=== PATIENT | male | born 1970 | race Caucasian/White ===

== ENCOUNTER 2019-07-31 14:53 | Inpatient (IN) ==
[2019-07-31] MEDS ORDERED: cefTRIAXone SODIUM 1,000 MG/50 ML BAG IV STA (15:12)
[2019-07-31] MEDS ORDERED: ONDANSETRON INJ 2 MG/ML 2 ML VIAL IV STA (15:12)
[2019-07-31] MEDS ORDERED: MoRPHine SULFATE 10 MG/ML CARP/VIAL IV STA (15:12)
[2019-07-31] MEDS ORDERED: SODIUM CHLORIDE 0.9% 1000ML 2,000 ML IV ONE (15:12)
--- NOTE | 2019-07-31 15:12 | Emergency Department Note ---
Impression & Plan Sepsis, Acute UTI, Asplenia ED Provider Note NAME: INNA WILLARD AGE: 49 SEX: M : 1970 ARRIVES VIA: Walk-In INFORMANT: Patient ED PROVIDER(S): Josh Adams DO CHIEF COMPLAINT: Lower back pain HPI: Patient is a 49-year-old male with a past medical history of renal stones, hypertension, hyperlipidemia and CAD the presents the ER for severe back pain and pain at the tip of his penis. He notes that he has been having dysuria urgency and frequency. His symptoms started this past Wednesday at 4 AM. He notes it feels like his previous kidney stones but worse. He also notes that for the past 3 weeks up until this past he has had a cough and postnasal drip. He denies any cough currently shortness of breath. He does admit to a fever which is been present for the past 24 to 48 hours. Patient admits to nausea but no vomiting. No other exacerbating or remitting factors. He has been taking Tylenol with no improvement. No weakness or numbness in his arms or legs. ROS: See above HPI for pertinent positives & negatives. A total of 10 systems reviewed and were otherwise negative. PAST MEDICAL HISTORY:See Below PAST SURGICAL HISTORY:See Below FAMILY HISTORY:See Below SOCIAL HISTORY:See Below HOME MEDICATIONS:See Below ALLERGIES:See Below VITALS:See Below PHYSICAL EXAMINATION: GENERAL: Sitting up in bed, moderate distress holding his penis, EYE EXAM: normal conjunctiva OROPHARYNX: no exudate, no erythema, lips, buccal mucosa, and tongue normal and mucous membranes are moist NECK: supple, no nuchal rigidity, no adenopathy, non-tender LUNGS: Clear to auscultation. Normal chest wall mechanics HEART: Tachycardic S1 normal and S2 normal ABDOMEN: abdomen soft, non-tender, normo-active bowel sounds, no masses, no rebound or guarding. BACK: Back is symmetrical on inspection and there is no deformity, no midline tenderness, no CVA tenderness. : Normal external circumcised genitalia. Testicles are nontender. No masses. No discharge. SKIN: no rashes and no bruising UPPER EXTREMITIES: upper extremities are grossly normal. LOWER EXTREMITIES: No pitting edema. NEURO EXAM: Normal sensorium, cranial nerves II-XII grossly intact, normal speech, no gross weakness of arms, no gross weakness of legs. MEDICAL DECISION MAKING: Patient is a 49-year-old male with past medical history of renal colic, asplenic who presents the ER for fevers back pain dysuria urgency and frequency. He had respiratory symptoms for the past 3 weeks which resolved this past . Urinary symptoms and fever, as well as back pain started Wednesday. He has a leukocytosis of 21,000. No significant anemia. BMP with mild hypokalemia. LFTs bilirubin troponin was negative. Lipase was normal. UA shows an infection with white cells, leukocytes and bacteria. Patient was given IV fluids, IV Rocephin and IV narcotics. Patient was updated bedside and discussed with hospitalist for admission. X-ray with a questionable left lower lobe infiltrate. He is completely asymptomatic. CT abdomen pelvis shows inflamm ation of the bladder. Triage Nursing notes reviewed. Prior medical records reviewed Vital Signs: reviewed and remarkable for no significant abnormalities Differential diagnosis: Differential diagnosis includes etiologies such as sepsis, UTI, pneumonia, metabolic, electrolyte abnormalities, cardiac sources, intracerebral event, toxicologic, neurological, as well as others were entertained. ER treatment provided: See below Diagnostics interpreted by me: Cardiac Monitoring:Sinus rhythm rate of 90 normal Laboratory studies: As stated above and show below. Imaging studies: Portable AP upright 1 view of the chest showed a questionable left lower lobe infiltrate. 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 Beliefs That Will Affect Care: None Current Living Situation: Spouse Feels Safe at Home: Yes Smoking Status: Never smoker Second Hand Exposure: No ; Hx Alcohol Use: Yes Alcohol type: beer Hx Substance Use: No Allergies Allergies Allergy/AdvReac Type Severity Reaction Status Date / Time No Known Allergies Allergy Verified 07/31/19 15:50 Home Meds Home Medications Medication Instructions Recorded Confirmed atorvastatin 20 mg tablet 20 mg PO QAM #30 tab 12/06/18 07/31/19 lorazepam 1 mg tablet 1 mg PO DAILY PRN tab 12/06/18 07/31/19 metoprolol succinate 50 mg 50 mg PO QAM #30 tab 12/06/18 07/31/19 tablet,extended release 24 hr venlafaxine 150 mg 150 mg PO QAM cap 12/06/18 07/31/19 capsule,extended release 24 hr aspirin 325 mg PO QAM 07/31/19 07/31/19 losartan 100 mg PO QAM 07/31/19 07/31/19 Results & Data (ED) Vital Signs Vital Signs - 24 hr 07/31/19 14:56 07/31/19 15:48 07/31/19 15:51 Temperature 38.0 C H Temperature Source Oral Pulse Rate 112 H Pulse Rate [Left] 107 H Pulse Rhythm Regular Pulse Rhythm [Left] Regular Pulse Strength Normal Respiratory Rate 20 20 Respiratory Effort / Characteristics Non-Labored Respiratory Depth Normal Normal Respiratory Pattern Regular Regular Blood Pressure [Left Arm] 130/84 Blood Pressure Mean [Left Arm] 99 Blood Pressure Position Sitting Pulse Oximetry 97 95 94 Oxygen Delivery Method Room Air Room Air Room Air Sepsis Recent Fever Within 48 Hours Yes Sepsis Action Taken by Nursing No Action Required 07/31/19 16:50 Temperature Temperature Source Pulse Rate Pulse Rate [Left] 101 H Pulse Rhythm Pulse Rhythm [Left] Regular Pulse Strength Respiratory Rate 25 H Respiratory Effort / Characteristics Non-Labored Respiratory Depth Normal Respiratory Pattern Regular Blood Pressure [Left Arm] 151/96 H Blood Pressure Mean [Left Arm] 114 Blood Pressure Position Pulse Oximetry 95 Oxygen Delivery Method Room Air Sepsis Recent Fever Within 48 Hours Sepsis Action Taken by Nursing Laboratory Data Result diagrams: 07/31/19 15:30 07/31/19 15:30 Lab Results 07/31/19 07/31/19 07/31/19 Range/Units 15:27 15:30 15:30 WBC 21.45 H (4.8-10.8) K/uL RBC 4.83 (4.7-6.1) M/uL Hgb 14.9 (14.0-18.0) g/dL Hct 43.5 (42-52) % MCV 90.1 (80-100) fL MCH 30.8 (25-34) pg MCHC 34.3 (32-36) g/dL RDW Std Deviation 45.4 (36.4-46.3) fL RDW Coeff of Ashley 13.8 (11.5-14.5) % Plt Count 291 (130-400) K/uL MPV 9.9 (7.4-10.4) fL Immature Gran % (Auto) 0.2 % Neut % (Auto) 85.1 % Lymph % (Auto) 6.1 % [place] % (Auto) 8.3 % Eos % (Auto) 0.2 % Baso % (Auto) 0.1 % Immature Gran # (Auto) 0.05 H (0.00-0.02) K/uL Neut # (Auto) 18.23 H (1.4-6.5) K/uL Lymph # (Auto) 1.31 (1.2-3.4) K/uL [place] # (Auto) 1.79 H (0.11-0.59) K/uL Eos # (Auto) 0.04 (0-0.5) K/uL Baso # (Auto) 0.03 (0-0.2) K/uL Sodium 134 L (136-145) mmol/L Potassium 3.8 (3.5-5.1) mmol/L Chloride 102 (98-107) mmol/L Carbon Dioxide 26 (21-32) mmol/L Anion Gap 6.0 (3-11) BUN 12 (7-18) mg/dl Creatinine 1.10 (0.6-1.4) mg/dl Est Cr Clr Drug Dosing Not Reportable Est GFR ( Amer) 89.6 Est GFR (Non-Af Amer) 77.3 BUN/Creatinine Ratio 11.2 (10-20) Glucose 108 H (70-99) mg/dl Calcium 9.3 (8.5-10.1) mg/dl Total Bilirubin 0.6 (0.2-1) mg/dl AST 19 (15-37) U/L ALT 32 (12-78) U/L Alkaline Phosphatase 103 (45-117) U/L Troponin I < 0.015 (0-0.045) ng/ml Total Protein 8.3 H (6.4-8.2) gm/dl Albumin 3.7 (3.4-5.0) gm/dl Globulin 4.6 H (2.5-4.0) gm/dl Albumin/Globulin Ratio 0.8 L (0.9-2) Lipase 109 (73-393) U/L Urine Color Yellow Urine Appearance Cloudy A (Clear) Urine pH 7.5 (4.5-7.5) Ur Specific [place] 1.026 (1.000-1.030) Urine Protein 2+ H (Negative) Urine Glucose (UA) 1+ H (Negative) Urine Ketones Trace H (Negative) Urine Blood Trace H (Negative) Urine Nitrite Positive A (Negative) Urine Bilirubin Negative (Negative) Urine Urobilinogen Negative (Negative) Ur Leukocyte Esterase 2+ H (Negative) Urine WBC (Auto) >30 H (0-5) /hpf Urine RBC (Auto) 0-4 (0-4) /hpf U Hyaline Cast (Auto) 10-30 H (0-5) /lpf U Epithel Cells (Auto) 5-10 H (0-5) /lpf Urine Bacteria (Auto) 4+ H (Negative) Administered Medications Discontinued Medications Sodium Chloride (Nss 1000ml) 2,000 mls @ 999 mls/hr IV .Q2H1M ONE Stop: 07/31/19 17:12 Last Infusion: 07/31/19 17:23 Dose: 0 mls/hr Documented by: [id number] Admin: 07/31/19 15:41 Dose: 999 mls/hr Documented by: [id number] Ceftriaxone Sodium (Rocephin) 1,000 mg in 50 mls @ 100 mls/hr IV NOW STA Stop: 07/31/19 15:41 Last Infusion: 07/31/19 17:23 Dose: 0 mls/hr Documented by: [id number] Admin: 07/31/19 16:49 Dose: 100 mls/hr Documented by: [id number] Morphine Sulfate (Morphine Sulfate) 6 mg IV NOW STA Stop: 07/31/19 15:13 Last Admin: 07/31/19 15:39 Dose: 6 mg Documented by: [id number] Ondansetron HCl (Zofran) 4 mg IV NOW STA Stop: 07/31/19 15:13 Last Admin: 07/31/19 15:39 Dose: 4 mg Documented by: [id number] Discharge Plan Visit Data Chief Complaint: Flank Pain Stated Complaint: flank pain, lower back pain, possible kidney stone ED Provider: Josh Adams Discharge Problem: Sepsis, Acute UTI, Asplenia Discharge Instructions Interventions: ED Discharge Assessment Last Done: 07/31/19 17:25 Discharge Problem: Sepsis Qualifiers: Sepsis type: sepsis due to unspecified organism Sepsis acute organ dysfunction status: unspecified Qualified Code(s): A41.9 - Sepsis, unspecified organism
[2019-07-31 15:39] LABS: Appearance Urine Cloudy (Clear); Bacteria Urine Automated 4+ (Negative); Bilirubin Urine Negative (Negative); Blood Urine Trace (Negative); Color Urine Yellow; Glucose Urine UA 1+ (Negative); Ketones Urine Trace (Negative); Leukocyte Esterase Urine 2+ (Negative); Nitrite Urine Positive (Negative); RBC Urine Automated 0-4 /hpf (0-4); Specific Gravity Urine 1.026 (1.000-1.030); Urobilinogen Urine Negative (Negative); WBC Urine Automated >30 /hpf (0-5); pH Urine 7.5 (4.5-7.5)
[2019-07-31 15:40] LABS: Protein Urine 2+ (Negative)
[2019-07-31 15:42] LABS: Sulfosalicylic Acid Urine Positive (Negative)
--- NOTE | 2019-07-31 15:56 | XRay Report ---
XR chest 1V portable CLINICAL HISTORY: fever dyspnea COMPARISON STUDY: No previous studies for comparison. FINDINGS: Minimal interstitial change left mid and lower lung. Lungs otherwise appear clear. Slight f ullness mid mediastinum which may be rotational. Diaphragms are smooth. IMPRESSION: Minimal interstitial change left mid to lower lung. ACT 112: Negative or not required by law. The above report was generated using voice recognition software. It may contain grammatical, syntax or spelling errors. Electronically signed by: Erick Whitfield M.D. 07/31/2019 3:55 PM
[2019-07-31 15:58] LABS: Basophils # (auto) 0.03 K/uL (0-0.2); Basophils % (auto) 0.1 %; Eosinophils # (auto) 0.04 K/uL (0-0.5); Eosinophils % (auto) 0.2 %; Hematocrit (blood only) 43.5 % (42-52); Hemoglobin 14.9 g/dL (14.0-18.0); Immature Granulocytes # (auto) 0.05 K/uL (0.00-0.02); Immature Granulocytes % (auto) 0.2 %; Lymphocytes # (auto) 1.31 K/uL (1.2-3.4); Lymphocytes % (auto) 6.1 %; Mean Corpuscular Hemoglobin 30.8 pg (25-34); Mean Corpuscular Hgb Conc 34.3 g/dL (32-36); Mean Corpuscular Volume 90.1 fL (80-100); Mean Platelet Volume 9.9 fL (7.4-10.4); Monocytes # (auto) 1.79 K/uL (0.11-0.59); Monocytes % (auto) 8.3 %; Neutrophils # (auto) 18.23 K/uL (1.4-6.5); Neutrophils % (auto) 85.1 %; Platelet Count 291 K/uL (130-400); RDW Coefficient of Variation 13.8 % (11.5-14.5); RDW Standard Deviation 45.4 fL (36.4-46.3); Red Blood Count 4.83 M/uL (4.7-6.1); White Blood Count 21.45 K/uL (4.8-10.8)
[2019-07-31 16:04] LABS: Alanine Aminotransferase 32 U/L (12-78); Albumin Level 3.7 gm/dl (3.4-5.0); Aspartate Aminotransferase 19 U/L (15-37); BUN Creatinine Ratio 11.2 (10-20); Blood Urea Nitrogen 12 mg/dl (7-18); Calcium 9.3 mg/dl (8.5-10.1); Carbon Dioxide 26 mmol/L (21-32); Chloride 102 mmol/L (98-107); Est GFR (African American) 89.6; Est GFR (Non-African American) 77.3; Glucose 108 mg/dl (70-99); Lipase 109 U/L (73-393); Potassium 3.8 mmol/L (3.5-5.1); Sodium 134 mmol/L (136-145)
[2019-07-31 16:09] LABS: Albumin Globulin Ratio 0.8 (0.9-2); Alkaline Phosphatase 103 U/L (45-117); Bilirubin,Total 0.6 mg/dl (0.2-1); Globulin 4.6 gm/dl (2.5-4.0); Total Protein 8.3 gm/dl (6.4-8.2); Troponin I < 0.015 ng/ml (0-0.045)
--- NOTE | 2019-07-31 16:24 | CT Scan Report ---
ABDOMEN AND PELVIS CT WITHOUT CONTRAST CT DOSE: 1087.78 mGycm HISTORY: flank pain TECHNIQUE: Multiaxial CT images of the abdomen and pelvis were performed without contrast. A dose lo wering technique was utilized adhering to the principles of ALARA. COMPARISON STUDY: Abdomen and pelvis CT 09/28/2013. FINDINGS: The lung bases are clear. No pneumoperitoneum. No pneumatosis. The unenhanced liver, gallbl adder, pancreas, adrenal glands, and left kidney are unremarkable. There is a 1.5 cm hypodense lesion within the right kidney. This is incompletely characterized on this noncontrast study but favors a c yst. No renal or ureteral stones. No hydronephrosis. There is an atrophic spleen. Multiple scattered nodules seen throughout the abdomen consistent with splenosis. This remains unchanged. Bladder wall i s thickened and there is adjacent fat stranding. Findings are consistent with a cystitis. No retroper itoneal lymphadenopathy. Small fat-containing bilateral inguinal hernias. Suboptimal evaluation for b owel pathology due to the lack of intravenous and oral contrast. However, there is no definite bowel wall thickening or obstruction. Colonic diverticulosis. No evidence for diverticulitis. Normal append ix. No suspicious lytic or blastic osseous lesions. IMPRESSION: 1. Bladder wall thickening with adjacent fat stranding consistent with a cystitis. Recommend correlat ion with urinalysis. 2. No renal or ureteral stones. No hydronephrosis. 3. Splenosis, unchanged. ACT 112: Negative or not required by law. Electronically signed by: Matthew Nguyen M.D. 07/31/2019 4:23 PM
[2019-07-31] MEDS ORDERED: ACETAMINOPHEN 325 MG TAB PO PRN (17:42)
[2019-07-31] MEDS ORDERED: PHENAZOPYRIDINE HCL 200 MG TAB PO STA (17:42)
[2019-07-31] MEDS ORDERED: MoRPHine SULFATE 4 MG/ML 1 ML CARP\\VIAL IV PRN (17:42)
[2019-07-31] MEDS ORDERED: ONDANSETRON INJ 2 MG/ML 2 ML VIAL IV PRN (17:42)
--- NOTE | 2019-07-31 17:52 | History & Physical Report ---
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 WBC: 21. BUN:12, Cr: 1.1, GFR: 77, UA: +nitrite, 2+ leuk esterase, >30 WBC, 4+bacteria, 5-[address] ABD/PELVIS: 1. Bladder wall thickening with adjacent fat stranding consistent with a cystitis. Recommend correlation with urinalysis. 2. No renal or ureteral stones. No hydronephrosis. 3. Splenosis, unchanged. CYSTITIS, SEPSIS. In Setting of Asplenia. DDX: Pyelonephritis, prostatitis. -In ER given 2L NSS, morphine, zofran, Rocephin 1GM IV -Lactate pending -Blood culture pending -Urine culture pending -Zosyn, vancomycin -IVF -ID consult -CBC, BMP in am (2) Hypertension: Stable Recently taken off amlodipine secondary to BLE. 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 Pt states 2 days ago started with fever up to 102F, chills, POLLOCK, low back pain, dysuria, penile burning, urinary urgency, some lower abdominal pressure, nausea. Pt states at first he thought he was passing a kidney stone but reports different back pain with prior kidney stones. Denies penile discharge, scrotal edema or erythema. Denies rectal pain. Is in monogamous relationship with female partner. Denies h/o STD's, penile or scrotal lesions or rashes. H/O cough 06/2019 and in mid 07/2019 that started with post nasal drip followed by cough and then hoarseness. Saw PCP and used albuterol and Breo and pt states cough resolved and no cough for 4-5 days. Had no associated fevers at that time. Pt was on amlodipine and developed BLE edema and stopped 3 days ago with resolution of edema. Denies vomiting, diarrhea, hematuria, dizziness, syncope, vision changes, neck pain, CP, SOB, orthopnea, palpitations, sore throat, choking, otalgia, paresthesias, weakness, extremity weakness, rashes. Allergies Allergy/AdvReac Type Severity Reaction Status Date / Time No Known Allergies Allergy Verified 07/31/19 15:50 Home Medications Home Medications Medication Instructions Recorded Confirmed Type atorvastatin 20 mg tablet 20 mg PO QAM #30 tab 12/06/18 07/31/19 History lorazepam 1 mg tablet 1 mg PO DAILY PRN tab 12/06/18 07/31/19 History metoprolol succinate 50 mg 50 mg PO QAM #30 tab 12/06/18 07/31/19 History tablet,extended release 24 hr venlafaxine 150 mg 150 mg PO QAM cap 12/06/18 07/31/19 History capsule,extended release 24 hr aspirin 325 mg PO QAM 07/31/19 07/31/19 History hydrochlorothiazide 12.5 mg PO DAILY 07/31/19 07/31/19 History losartan 100 mg PO QAM 07/31/19 07/31/19 History Past Med/Surg History Medical History Anxiety B-cell 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 Mother Anxiety Social History Preferred Language: Persian Communication Ability: Effective Scada Operator Required: No Beliefs That Will Affect Care: None Current Living Situation: Spouse Feels Safe at Home: Yes Smoking Status: Never smoker Second Hand Exposure: No ; Hx Alcohol Use: Yes Alcohol type: beer Hx Substance Use: No Review of Systems Review of Systems: All systems reviewed & are unremarkable except as noted in HPI & below Physical Exam Physical Exam: General: no acute distress, obese Head: normocephalic, atraumatic Eyes: PERRL, EOM's intact, conjunctiva non-injected, anicteric ENT: normal inspection external ears, nose, mucous membranes mildly dry Neck: supple, trachea midline, non-tender Lungs: clear, no respiratory distress, no wheezing/rhonchi/rales CV: RRR, no murmur, no JVD, no pretibial edema Abd: normal BS, soft, non-tender Back: No CVA tenderness to palpation Groin: no penile discharge or penile lesions, scrotum without edema or erythema and non-tender to palpation Ext: no cyanosis, no calf tenderness Neuro: A&O x 3, no focal deficits noted, normal affect Skin: warm, dry Results & Data Results & Data ([facility]) Vital Signs (Past 12 Hours) Vital Signs Temp Pulse Pulse Resp BP BP Pulse Ox 07/31/19 17:25 85 22 128/82 98 07/31/19 16:50 101 H 25 H 151/96 H 95 07/31/19 15:51 107 H 20 130/84 94 07/31/19 15:48 95 07/31/19 14:56 38.0 C H 112 H 20 97 Laboratory Results Short CBC 07/31/19 Range/Units 15:30 WBC 21.45 H (4.8-10.8) K/uL Hgb 14.9 (14.0-18.0) g/dL Hct 43.5 (42-52) % Plt Count 291 (130-400) K/uL BMP 07/31/19 15:30 Sodium 134 L Potassium 3.8 Chloride 102 Carbon Dioxide 26 BUN 12 Creatinine 1.10 Glucose 108 H Calcium 9.3 Cardiac Enzymes 07/31/19 Range/Units 15:30 Troponin I < 0.015 (0-0.045) ng/ml Liver Function 07/31/19 Range/Units 15:30 Total Bilirubin 0.6 (0.2-1) mg/dl AST 19 (15-37) U/L ALT 32 (12-78) U/L Alkaline Phosphatase 103 (45-117) U/L Albumin 3.7 (3.4-5.0) gm/dl Urine 07/31/19 Range/Units 15:27 Urine Color Yellow Urine Appearance Cloudy A (Clear) Urine pH 7.5 (4.5-7.5) Ur Specific [place] 1.026 (1.000-1.030) Urine Protein 2+ H (Negative) Urine Glucose (UA) 1+ H (Negative) Diagnostic Findings CT ABD/PELVIS: IMPRESSION: 1. Bladder wall thickening with adjacent fat stranding consistent with a cystitis. Recommend correlation with urinalysis. 2. No renal or ureteral stones. No hydronephrosis. 3. Splenosis, unchanged. CXR: IMPRESSION: Minimal interstitial change left mid to lower lung. Supervising Physician Co-Signing Physician Notes Attending Addendum: care coordinated with TAO Drew please refer to her notes for full details, I agree with her notes patient seen and examined, records reviewed by myself as well on exam, patient seen sitting up in bed, not in distress, very pleasant Chief complaint is severe urethral pain, associated with incontinence, some straining with urination, as well as low back pain with chills On exam, pain is starting to get relieved by PRN analgesics although still significant Denies passage of stone or hematuria at home no other symptoms VS noted and reviewed oriented x 3, not in distress, speaks in sentences with no effort nor accessory muscle use normal rate, regular rhythm, no murmurs clear breath sounds bilaterally non distended, soft, nontender, no CVA tenderness Genitalia: Normal penile shaft, testicles-edema, warmth, tenderness no bipedal edema, erythema, warmth no neuro deficits WBC 21.4 Hg 18[address] abdomen/pelvis: Positive cystitis, no nephro/retrolithiasis ASSESSMENT AND PLAN> Sepsis secondary to UTI-status, possible prostatitis in the setting of asplenia --Blood pressure stable Lactic acid normal --Already received 2 L of IV NSS at the ER --Blood and urine cultures pending --Vanco plus Zosyn IV fluids ID consulted given history of splenectomy Severe urethral pain, rule out urethral stone -- ordered repeat CT pelvis to include full-length urethra to rule out stone If negative, patient may have passed the stone recently causing severe irritation Discussed with Dr. Hunt over the phone, if persistent, please discuss again with Dr. Hunt other diagnoses and plan of care as per TAO Ambriz MD
[2019-07-31] MEDS ORDERED: PATIENT'S HEIGHT AND/OR WEIGHT NEEDED SCH (18:00)
[2019-07-31] MEDS ORDERED: PIPERACILL/TAZOBAC CONSULT ACTIVE PRN (18:01)
[2019-07-31] MEDS ORDERED: VANCOMYCIN CONSULT ACTIVE PRN (18:01)
[2019-07-31] MEDS: SODIUM CHLORIDE 0.9% 1000ML 1,000 ML IV SCH (18:06)
[2019-07-31] MEDS ORDERED: PIPERACILLIN/TAZOBACTAM 4.5 GM in DEXTROSE 5% 100 ML IV ONE (18:15)
[2019-07-31] MEDS ORDERED: CONSULT PHARMACY STA (18:49)
[2019-07-31] MEDS ORDERED: HYDROmorphone INJ 1 MG/ML SYRINGE IV STA (19:13)
[2019-07-31] MEDS ORDERED: VANCOMYCIN HCL 2,750 MG in SODIUM CHLORIDE 0.9% 500 ML IV ONE (19:15)
--- NOTE | 2019-07-31 20:33 | CT Scan Report ---
CT pelvis wo con HISTORY: severe urethral pain; rule out urethral stone TECHNIQUE: Multiaxial CT images of the pelvis are performed without the use of intravenous contrast. COMPARISON STUDY: Abdomen and pelvis CT 07/31/2019. FINDINGS: No evidence for a urethral stone. Calcifications within the prostate gland are likely physi ologic. Small fat-containing bilateral inguinal hernias. IMPRESSION: No evidence for a urethral stone. ACT 112: Negative or not required by law. Electronically signed by: Matthew Nguyen M.D. 07/31/2019 8:32 PM
--- NOTE | 2019-07-31 20:50 | Pharmacy Report ---
Pharmacy Abx Initial Consult - Date of Service July 31, 2019 - Pharmacy Dosing Scope Date of Consult: 07/31/19 Consultation requested by: Dr. Ambriz & Libertad Huber PA-C Pharmacy is consulted to initiate Vancomycin + Zosyn IV dosing therapy, order appropriate labs and adjust drug dose/frequency. - Subjective The patient is a 49 year old M admitted on 07/31/19 17:01. - Objective Height: 5 ft 7 in Weight: 113.2 kg Vital Signs (Past 12hrs): Vital Signs Temp Pulse Pulse Resp BP BP Pulse Ox 07/31/19 17:47 95 H 07/31/19 17:45 37.5 C 100 H 20 125/79 93 07/31/19 17:42 37.5 C 100 H 20 125/79 93 07/31/19 17:25 85 22 128/82 98 07/31/19 16:50 101 H 25 H 151/96 H 95 07/31/19 15:51 107 H 20 130/84 94 07/31/19 15:48 95 07/31/19 14:56 38.0 C H 112 H 20 97 Lab Results (24hrs): Laboratory Tests (24 Hours) 07/31/19 07/31/19 15:30 15:30 WBC 21.45 H Neut # (Auto) 18.23 H Creatinine 1.10 Est Cr Clr Drug Dosing Not Reportable Micro Results: 07/31/19 15:44 Aerobic Blood Culture - Pending Blood Anaerobic Blood Culture - Pending 07/31/19 15:27 Urine Culture - Pending Urine,Clean Catch 07/31/19 15:30 Aerobic Blood Culture - Pending Blood Anaerobic Blood Culture - Pending - Risk Factors for Resistance * Patient asplenic - history of trauma leading to splenectomy - Assessment & Plan Assessment 49 year old M with a history of kidney stones and BPH presented to the ED with persistent fever, back pain, urinary/penile discomfort, and dysuria. Tmax in ED 38C WBC 21.[address] shows no evidence of stone or blockage Renal function appears to be at baseline (lack of recent data--however still similar) Blood cx x2 pending UCx pending Plan Vancomycin + Zosyn for treatment of cystitis Vancomycin IV * Estimated PK Parameters: Vd 0.54 L/kg, Alfredo 0.84 hr-1, t1/2 8.3 hr * Loading dose: 2750mg (24.3 mg/kg) * Maintenance dose: 1500 mg IV (13.3 mg/kg) every 12 hours * Goal trough level : 15 to 20 mcg/mL * A less than traditional dose and extended dosing interval haVe been selected due to likelihood of drug accumulation in obese patient. Piperacillin/tazobactam * 4.5 g bolus administered over 30 minutes, then 4.5 g IV extended infusion every 8 hours for CrCl greater than 20 mL/min. * Aggressive dosing selected due to BMI 35 or more. Pharmacy will continue to follow and will adjust dose/frequency as necessary. Thank you.
[2019-08-01] MEDS: PIPERACILLIN/TAZOBACTAM 4.5 GM in DEXTROSE 5% 100 ML IV SCH ×4 (00:23→23:49)
[2019-08-01] MEDS: PHENAZOPYRIDINE HCL 200 MG TAB PO PRN ×2 (02:06→19:43)
[2019-08-01] MEDS: SODIUM CHLORIDE 0.9% 1000ML 1,000 ML IV SCH (02:06)
[2019-08-01] MEDS: HYDROmorphone INJ 0.5 MG/0.5 ML SYR IV PRN ×2 (02:10→08:47)
[2019-08-01 07:34] LABS: Basophils # (auto) 0.03 K/uL (0-0.2); Basophils % (auto) 0.2 %; Eosinophils # (auto) 0.23 K/uL (0-0.5); Eosinophils % (auto) 1.5 %; Hematocrit (blood only) 39.4 % (42-52); Hemoglobin 13.3 g/dL (14.0-18.0); Immature Granulocytes # (auto) 0.03 K/uL (0.00-0.02); Immature Granulocytes % (auto) 0.2 %; Lymphocytes # (auto) 1.79 K/uL (1.2-3.4); Lymphocytes % (auto) 11.6 %; Mean Corpuscular Hemoglobin 30.6 pg (25-34); Mean Corpuscular Hgb Conc 33.8 g/dL (32-36); Mean Corpuscular Volume 90.8 fL (80-100); Mean Platelet Volume 9.4 fL (7.4-10.4); Monocytes # (auto) 2.08 K/uL (0.11-0.59); Monocytes % (auto) 13.5 %; Neutrophils # (auto) 11.25 K/uL (1.4-6.5); Platelet Count 268 K/uL (130-400); RDW Coefficient of Variation 13.9 % (11.5-14.5); RDW Standard Deviation 46.4 fL (36.4-46.3); Red Blood Count 4.34 M/uL (4.7-6.1); White Blood Count 15.41 K/uL (4.8-10.8)
[2019-08-01] MEDS: VANCOMYCIN HCL 1,500 MG in SODIUM CHLORIDE 0.9% 500 ML IV SCH ×2 (07:41→19:53)
[2019-08-01] MEDS: VENLAFAXINE HCL XR 150 MG CAPXR PO SCH (07:50)
[2019-08-01] MEDS: LOSARTAN POTASSIUM 50 MG TAB PO SCH (07:50)
[2019-08-01] MEDS: ASPIRIN 325 MG ECTAB PO SCH (07:50)
[2019-08-01] MEDS: ATORVASTATIN 20 MG TAB PO SCH (07:50)
[2019-08-01] MEDS: METOPROLOL SUCC 50MG EXT REL TAB PO SCH (07:50)
[2019-08-01] MEDS: DOCUSATE SODIUM/SENNA 50/8.6MG TAB PO SCH (07:50)
[2019-08-01 08:01] LABS: BUN Creatinine Ratio 13.2 (10-20); Calcium 8.8 mg/dl (8.5-10.1); Creatinine Clr Calc Pharmacy 121.3 ml/min; Est GFR (African American) 115.8; Est GFR (Non-African American) 99.9; Potassium 3.9 mmol/L (3.5-5.1)
--- NOTE | 2019-08-01 11:09 | Infectious Disease Consult ---
Date of Consultation August 01, 2019 Assessment & Plan (1) Cystitis: continue broad spectrum abx for now, follow blood and urine culture results. final abx will depend on final micro. History of Present Illness Attending Physician: Abdoulaye Martini MD pt admitted after 2 day h/o dysuria, fevers up to 102. In ER UA >30 wbc +4 bacteria, culture growing >100,000 E. coli, final pending, blood cultures pending, CT abd/pelvis did not reveal stone, has h/o stones, no pyelo noted, finding consistent with cystitis. In ER temp 38, now afebrile. wbc initially 21, now 15. 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 CXR negative for infiltrate. Placed on vanco and zosyn, tolerating well. Allergies Allergy/AdvReac Type Severity Reaction Status Date / Time No Known Allergies Allergy Verified 07/31/19 15:50 Home Medications Home Medications Medication Instructions Recorded Confirmed Type atorvastatin 20 mg tablet 20 mg PO QAM #30 tab 12/06/18 07/31/19 History lorazepam 1 mg tablet 1 mg PO DAILY PRN tab 12/06/18 07/31/19 History metoprolol succinate 50 mg 50 mg PO QAM #30 tab 12/06/18 07/31/19 History tablet,extended release 24 hr venlafaxine 150 mg 150 mg PO QAM cap 12/06/18 07/31/19 History capsule,extended release 24 hr aspirin 325 mg PO QAM 07/31/19 07/31/19 History hydrochlorothiazide 12.5 mg PO DAILY 07/31/19 07/31/19 History losartan 100 mg PO QAM 07/31/19 07/31/19 History Patient History Medical History Anxiety 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 Mother Anxiety Social History Preferred Language: Ukrainian Communication Ability: Effective Answering Service Telephone Operator Required: No Beliefs That Will Affect Care: None Current Living Situation: Spouse and Family Other Information That Helps Us Care for You: No Feels Safe at Home: Yes Safety Concerns: Feels Safe At This Time Smoking Status: Never smoker Second Hand Exposure: No ; Hx Alcohol Use: Yes Alcohol type: beer Hx Substance Use: No Review of Systems Review of Systems: per h&P Results & Data ([place]) Vital Signs (Past 12 Hours) Vital Signs Temp Pulse Resp BP BP Pulse Ox 08/01/19 07:31 37.1 C 81 18 129/86 96 08/01/19 03:42 37 C 85 20 110/73 96 07/31/19 23:29 36.9 C 85 18 115/72 96 Laboratory Results Microbiology 07/31/19 15:27 Urine,Clean Catch Urine Culture - Preliminary Escherichia coli PG Care Time/CCT Total # of Minutes Spent Total Time Spent with Patient: Total time spent is greater than 50% in coordination of care (as documented) at patient's floor/unit and/or counseling patient: Coding Level of Care Code 59840 Inpt Consult Level 2 Diagnoses Cystitis N30.90
--- NOTE | 2019-08-01 11:33 | Hospitalist Progress Note ---
Date of Service August 01, 2019 Assessment & Plan (1) Cystitis: Sepsis Presented on admission with low back pain, dysuria, penile burning, urinary urgency, weakness and fever Meet sepsis guideline on admission with leukocytosis, fever and abnormal UA CT abd/Pelvis showed bladder wall thickening with adjacent fat stranding consistent with a cystitis. No evidence for a urethral stone. 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 Stable DVT Prophylaxis Low risk, ambulate CODE STATUS FULL CODE Admission and Anticipated Discharge Date Admission Date: July 31, 2019 Subjective Pt was seen and examined Sitting in bed with no distress Pt said that the dysuria improves He said that he feels much better He said that he does not have any fever Denies any chest pain, palpitation, dizziness and SOB Physical Exam Physical Exam: General- No acute distress Head- atraumatic Eyes- PERRL, EOMI, ENT- oropharynx clear Neck- supple, no JVD Lungs- clear to auscultation Heart- regular rhythm; no murmur Abdomen- normal bowel sounds, soft, nontender Extremities- no calf tenderness Neuro- alert, oriented x 3; PERRL, EOMI; no facial palsy; no dysarthria Skin- warm & dry Results & Data Results & Data ([facility]) Vital Signs (Past 12 Hours) Vital Signs Temp Pulse Resp BP BP Pulse Ox 08/01/19 11:06 36.4 C L 79 18 137/83 96 08/01/19 07:31 37.1 C 81 18 129/86 96 08/01/19 03:42 37 C 85 20 110/73 96 07/31/19 23:29 36.9 C 85 18 115/72 96
[2019-08-01] MEDS ORDERED: LORazepam 0.5 MG TAB PO STA (19:38)
[2019-08-02] MEDS ORDERED: VANCOMYCIN TROUGH ONE (07:00)
[2019-08-02 07:16] LABS: Hematocrit (blood only) 38.7 % (42-52); Mean Corpuscular Hemoglobin 30.4 pg (25-34); Mean Corpuscular Hgb Conc 33.6 g/dL (32-36); Mean Corpuscular Volume 90.6 fL (80-100); Mean Platelet Volume 9.5 fL (7.4-10.4); Platelet Count 317 K/uL (130-400); RDW Coefficient of Variation 13.9 % (11.5-14.5); RDW Standard Deviation 46.1 fL (36.4-46.3); Red Blood Count 4.27 M/uL (4.7-6.1); White Blood Count 12.02 K/uL (4.8-10.8)
[2019-08-02] MEDS: VANCOMYCIN HCL 1,500 MG in SODIUM CHLORIDE 0.9% 500 ML IV SCH (07:26)
[2019-08-02] MEDS: PIPERACILLIN/TAZOBACTAM 4.5 GM in DEXTROSE 5% 100 ML IV SCH (07:26)
[2019-08-02] MEDS: ATORVASTATIN 20 MG TAB PO SCH (07:30)
[2019-08-02] MEDS: VENLAFAXINE HCL XR 150 MG CAPXR PO SCH (07:30)
[2019-08-02] MEDS: METOPROLOL SUCC 50MG EXT REL TAB PO SCH (07:30)
[2019-08-02] MEDS: LOSARTAN POTASSIUM 50 MG TAB PO SCH (07:30)
[2019-08-02] MEDS: ASPIRIN 325 MG ECTAB PO SCH (07:30)
[2019-08-02] MEDS: DOCUSATE SODIUM/SENNA 50/8.6MG TAB PO SCH (07:30)
[2019-08-02 07:43] LABS: BUN Creatinine Ratio 14.5 (10-20); Calcium 8.8 mg/dl (8.5-10.1); Creatinine Clr Calc Pharmacy 108.4 ml/min; Est GFR (African American) 104.3; Potassium 3.6 mmol/L (3.5-5.1)
--- NOTE | 2019-08-02 09:23 | Infectious Disease Progress Nt ---
Date of Service August 02, 2019 Assessment & Plan (1) Cystitis: will narrow to keflex, would give 7-10 days total. ok for d/c when otherwise stable. Admission and Anticipated Discharge Date Admission Date: July 31, 2019 Subjective pt afebrile overnight, remains on broad spectrum abx, tolerating well. wbc improved to 12, blood cultures remain negative, urine culture growing ramesh sensitive E. coli. creat 0.9 Results & Data ([facility]) Vital Signs (Past 12 Hours) Vital Signs Temp Pulse Pulse Resp BP Pulse Ox 08/02/19 07:47 75 08/02/19 07:40 62 18 138/86 94 08/02/19 03:21 37.1 C 68 18 151/97 H 98 08/02/19 02:35 85 08/02/19 00:07 37.0 C 93 H 18 153/93 H 95 Laboratory Results Microbiology 07/31/19 15:27 Urine,Clean Catch Urine Culture - Final Escherichia coli 07/31/19 15:44 Blood Aerobic Blood Culture - Preliminary No growth in Aerobic bottle after 24 hours. 07/31/19 15:44 Blood Anaerobic Blood Culture - Preliminary No growth in Anaerobic bottle after 24 hours. 07/31/19 15:30 Blood Aerobic Blood Culture - Preliminary No growth in Aerobic bottle after 24 hours. 07/31/19 15:30 Blood Anaerobic Blood Culture - Preliminary No growth in Anaerobic bottle after 24 hours. PG Care Time/CCT Total # of Minutes Spent Total Time Spent with Patient: Total time spent is greater than 50% in coord ination of care (as documented) at patient's floor/unit and/or counseling patient: Coding Level of Care Code 72576 Subseq Hosp Care Lvl 1 Diagnoses Cystitis N30.90
[2019-08-02] MEDS ORDERED: cephALEXin 500 MG CAP PO SCH (09:30)
--- NOTE | 2019-08-02 11:46 | Discharge Summary ---
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 Pt states 2 days ago started with fever up to 102F, chills, POLLOCK, low back pain, dysuria, penile burning, urinary urgency, some lower abdominal pressure, nausea. Pt states at first he thought he was passing a kidney stone but reports different back pain with prior kidney stones. Denies penile discharge, scrotal edema or erythema. Denies rectal pain. Is in monogamous relationship with female partner. Denies h/o STD's, penile or scrotal lesions or rashes. H/O cough 06/2019 and in mid 07/2019 that started with post nasal drip followed by cough and then hoarseness. Saw PCP and used albuterol and Breo and pt states cough resolved and no cough for 4-5 days. Had no associated fevers at that time. Pt was on amlodipine and developed BLE edema and stopped 3 days ago with resolution of edema. Denies vomiting, diarrhea, hematuria, dizziness, syncope, vision changes, neck pain, CP, SOB, orthopnea, palpitations, sore throat, choking, otalgia, paresthesias, weakness, extremity weakness, rashes. Admission Exam Per Admitting Provider General: no acute distress, obese Head: normocephalic, atraumatic Eyes: PERRL, EOM's intact, conjunctiva non-injected, anicteric ENT: normal inspection external ears, nose, mucous membranes mildly dry Neck: supple, trachea midline, non-tender Lungs: clear, no respiratory distress, no wheezing/rhonchi/rales CV: RRR, no murmur, no JVD, no pretibial edema Abd: normal BS, soft, non-tender Back: No CVA tenderness to palpation Groin: no penile discharge or penile lesions, scrotum without edema or erythema and non-tender to palpation Ext: no cyanosis, no calf tenderness Neuro: A&O x 3, no focal deficits noted, normal affect Skin: warm, dry Principal Diagnosis (1) Cystitis: (2) Hypertension: (3) Hyperlipidemia: (4) Premature ventricular beats: (5) Obstructive sleep apnea syndrome: (6) Anxiety: (7) B-cell lymphoma: Discharge Exam Physical Exam Gen-AAO x 3, NAD, Afebrile, obese Head-NCAT, EOMI, PERRLA, Anicteric Sclera, No Posterior Pharyngeal Erythema Neck-Supple, No JVD, No Thyromegaly, No Masses, No LAD, No Bruits Lungs-Clear to Auscultation Bilaterally, No Rales, No Rhonchi, No Wheezing, No Crepitus Chest-No S4, +S1, +S2, No S3, No Murmurs, No Rubs, No Gallops, No Ectopy Abdomen-Soft, Bowel Sounds Present, Non Tender, Non Distended, No Hepatomegaly, No Splenomegaly, No Palpable Masses, No Rebound, No Rigidity, No Guarding Musculoskeletal-Full Range of Motion Bilaterally, No CVAT Extremities-No Cyanosis, No Clubbing, No Edema Nuero-Cranial Nerves II-XII grossly intact, Motor WNL, DTRs WNL, Strength WNL, Non Focal Psych-Normal Mood Discharge Data Allergies Allergy/AdvReac Type Severity Reaction Status Date / Time No Known Allergies Allergy Verified 07/31/19 15:50 Consultations 07/31/19 16:55 ED Decision to Admit Stat 07/31/19 17:42 Consult Case Management - Discharge Planning Routine Consult Infectious Diseases Routine Ordered Studies 07/31/19 15:12 CT abd pelvis wo con Stat 07/31/19 18:44 CT pelvis wo con Urgent Current Diagnoses Unspecified B-cell lymphoma, unspecified site (07/31/19) Hyperlipidemia, unspecified (07/31/19) Anxiety disorder, unspecified (07/31/19) Obstructive sleep apnea (adult) (pediatric) (07/31/19) Essential (primary) hypertension (07/31/19) Ventricular premature depolarization (07/31/19) Cystitis, unspecified without hematuria (07/31/19) Allergies No Known Allergies Allergy (Verified 07/31/19 15:50) Height/Weight/Isolation Height 5 ft 7 in Weight 113.5 kg Chemistry 07/31/19 08/01/19 08/02/19 15:30 07:21 06:46 Sodium 134 L 138 138 Potassium 3.8 3.9 3.6 Chloride 102 108 H 109 H Carbon Dioxide 26 26 25 Anion Gap 6.0 4.0 4.0 BUN 12 11 14 Creatinine 1.10 0.87 0.97 Glucose 108 H 105 H 109 H Urinalysis 07/31/19 15:27 Urine Color Yellow Urine Appearance Cloudy A Urine pH 7.5 Ur Specific [place] 1.026 Urine Protein 2+ H Urine Glucose (UA) 1+ H Urine Ketones Trace H Urine Blood Trace H Urine Nitrite Positive A Urine Bilirubin Negative Microbiology 07/31/19 15:27 Urine,Clean Catch Urine Culture - Final Escherichia coli 07/31/19 15:44 Blood Aerobic Blood Culture - Preliminary No growth in Aerobic bottle after 24 hours. 07/31/19 15:44 Blood Anaerobic Blood Culture - Preliminary No growth in Anaerobic bottle after 24 hours. 07/31/19 15:30 Blood Aerobic Blood Culture - Preliminary No growth in Aerobic bottle after 24 hours. 07/31/19 15:30 Blood Anaerobic Blood Culture - Preliminary No growth in Anaerobic bottle after 24 hours. Hospital Course (1) Cystitis: Sepsis Ruled in POA sec to E coli, Gram Neg Sepsis Presented on admission with low back pain, dysuria, penile burning, urinary urgency, weakness and fever Meet sepsis guideline on admission with leukocytosis, fever and abnormal UA CT abd/Pelvis showed bladder wall thickening with adjacent fat stranding consistent with a cystitis. No evidence for a urethral stone. 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 Stable DVT Prophylaxis Low risk, ambulate CODE STATUS FULL CODE Total Time Total Time Spent Total Time Spent (In Minutes): 45 mins Total Time Includes: Examination of the Patient, Discharge Planning, Medication Reconciliation and Communication With Other Providers Discharge Plan Discharge Items Patient Disposition: Home - Self-Care Reason For Visit: PYELONEPHRITIS Discharge Diagnosis: (1) Cystitis/Pyeolnephritis: (2) Hypertension: (3) Hyperlipidemia: (4) Premature ventricular beats: (5) Obstructive sleep apnea syndrome: (6) Anxiety: (7) B-cell lymphoma: Condition on Discharge: Good Health Concerns: Minimal Activity: Resume your previous activity Bathing: No limitations Sexual Activity: When tolerated Exercise/Sports: Gradually increase as tolerated Driving/Machine Use: No limitations Weightbearing: Full weightbearing Non-emergency contact: Primary Care Provider Call non-emergency contact if: you have any medication questions Follow-up/Referrals: Josselyn Aguillon MD [Primary Care Provider] - Diet: Regular and Heart Healthy Addtl Attending Provider Instructions: None Pending Studies at Discharge: No Stand-Alone Forms: My [employer], Smoking Cessation Medications and DC Order Prescriptions: New phenazopyridine [Pyridium] 200 mg Tablet 200 mg PO TID Qty: 6 RF: 0 cephalexin 500 mg Capsule 500 mg PO BID Qty: 20 RF: 0 Continued lorazepam 1 mg tablet 1 mg PO DAILY PRN (Reason: Anxiety) RF: 0 atorvastatin 20 mg tablet 20 mg PO QAM Qty: 30 RF: 0 venlafaxine 150 mg capsule,extended release 24hr 150 mg PO QAM RF: 0 metoprolol succinate 50 mg tablet extended release 24 hr 50 mg PO QAM Qty: 30 RF: 0 losartan 50 mg tablet 100 mg PO QAM RF: 0 aspirin 325 mg Tablet 325 mg PO QAM RF: 0 hydrochlorothiazide 12.5 mg Capsule 12.5 mg PO DAILY RF: 0 Discharge Orders: Discharge Order (Routine); Ordered 08/02/19 Ordered By: Boyd Johnson Admission Data Admit Date/Time: 07/31/19 17:01 Attending Provider: Boyd Johnson Admit Provider: Noman Ambriz Primary Care Provider: Josselyn Aguillon Other Providers: Noman Ambriz ; Sheeba Altman
== END 2019-08-02 13:22 | disposition home or self-care (01) | DRG 872 ==
LOC: ED 14:53 → 2N 17:01 → SUATTDRO 17:01 → 2N 17:25

== ENCOUNTER 2020-04-04 09:58 | Inpatient (IN) ==
--- NOTE | 2020-04-04 10:15 | Emergency Department Note ---
Impression & Plan Pneumonia due to COVID-19 virus, Hypoxia, Hypokalemia, Obstructive sleep apnea syndrome ED Provider Note NAME: INNA WILLARD AGE: 49 SEX: M ARRIVES VIA: Walk-In INFORMANT: Patient, ED PROVIDER(S): Ray Davis MD CHIEF COMPLAINT: Flu-like symptoms. PLAN: Disposition: Admit. MEDICAL DECISION MAKING: The patient is a pleasant 49-year-old gentleman with a past medical history of JOE on home CPAP, B-cell lymphoma, asplenia, hypertension, hyperlipidemia, obesity, CAD status post CABG who presents emergency department with worsening headache, shortness of breath, chest pain, nausea, feverishness, body aches and malaise over the past week in the setting of testing positive for COVID-19 several days ago. The patient is unsure how he may have contracted the virus. He denies any known COVID-19 exposures or high risk activities. On arrival the patient is uncomfortable but no acute distress, afebrile stable vital signs. He has a scant intermittent wheeze and is diminished at the bases. Abdomen is benign. EKG unremarkable without evidence of acute ischemia. CXR with left lung base opacities that appear similar to prior. WBC, H/H, platelets wnl. Chemistry without acidosis. Potassium 3.4 and otherwise, LFTs and electrolytes unremarkable. Lactate wnl. Troponin negative/undetectable. Procalcitonin < 0.05. D-dimer was elevated and so CTA ordered. CTA chest negative for PE but demonstrates patchy multilobar distribution of groundglass opacities are compatible with a nonspecific infectious or inflammatory pneumonitis such as viral pneumonia. Upon re-evaluation patient did feel marginally improvement after IVF hydration, apap, albuterol, mucinex, antiemetics but still unwell with persistent tachypnea and O2 saturation as low as 91% on RA. Thus given patient's mild hypoxia and increased WOB in the setting of comorbidities, reasonable to admit. Patient was agreeable. Patient was placed on O2 NC and ordered for dexamethasone. Case was discussed with Jesusita Ballard, [facility] PAC, with Dr. Love, [facility] ist who will evaluate the patient for admission. Triage Nursing notes reviewed and agree them. Prior medical records reviewed Vital Signs: reviewed and remarkable for no significant abnormalities Differential diagnosis: Viral syndrome, otitis, pharyngitis, pneumonia, influenza, meningitis, urinary tract infection, sepsis, bacteremia, as well as other pathologies. ER treatment provided: See below. Diagnostics interpreted by me: ECG: NSR, 77 bpm, no ectopy, LVH, no overt ST elevation or depression. Cardiac Monitoring: An order for continuous cardiac monitoring was placed and demonstrated NSR, 77 bpm, no ectopy. Laboratory studies: See below Imaging studies: XR chest 1V portable HISTORY: 49 years-old Male SEPSIS acute sepsis COMPARISON: Chest radiograph 07/31/2019 TECHNIQUE: Portable AP view of the chest FINDINGS: Cardiac silhouette is mildly enlarged. Hypoinflation. No pneumothorax, pleural effusion or overt pulmonary edema. No definite airspace consolidation to suggest pneumonia. Subsegmental left lung base opacities appear similar to comparison suggestive of atelectasis. Degenerative changes of the shoulders and spine. IMPRESSION: No acute process. -- CT angio chest PE protocol CT DOSE: 561.40 mGycm HISTORY: 49 years-old Male with PE. Acute cough with shortness of breath. COVID Positive. TECHNIQUE: Multiple CTA images of the chest were obtained after the intravenous administration of 119 ml Optiray 320. Coronal and sagittal MIPS were obtained from the axial data set and were submitted for review. All measurements were obtained according to NASCET criteria. A dose lowering technique was utilized adhering to the principles of ALARA. COMPARISON: Chest radiograph of same day, CT abdomen 07/31/2019. FINDINGS: CTA: Heart is upper limits of normal in size. Moderate coronary artery calcifications. There is no thoracic aortic aneurysm or dissection. The pulmonary artery is opacified to level the segmental branches and demonstrates no filling defects to suggest thromboembolic disease. CT CHEST: Unremarkable thyroid. Mildly enlarged subcarinal lymph nodes measure up to 10 mm. No pneumothorax, pleural effusion or overt pulmonary edema. Patchy multilobar distribution of groundglass opacities. There are no suspicious pulmo nary nodules or masses. Central airways are patent. Mild nonspecific distal esophageal wall thickening. Splenosis of the upper abdomen. Unremarkable soft tissues. Bones appear intact. No acute fracture. IMPRESSION: 1. No evidence of pulmonary thromboembolic disease. 2. Patchy multilobar distribution of groundglass opacities are compatible with a nonspecific infectious or inflammatory pneumonitis such as viral pneumonia. 3. Mild subcarinal adenopathy, likely reactive. 4. Moderate coronary artery calcifications. ACT 112: Negative or not required by law. Consultation(s): Case was discussed with Jesusita Ballard, [facility] PAC, with Dr. Love, [facility] hospitalist who will evaluate the patient for admission. HPI: The patient is a pleasant 49-year-old gentleman with a past medical history of JOE on home CPAP, B-cell lymphoma, asplenia, hypertension, hyperlipidemia, obesity, CAD status post CABG who presents emergency department with worsening headache, shortness of breath, chest pain, nausea, feverishness, body aches and malaise over the past week in the setting of testing positive for COVID-19 several days ago. The patient is unsure how he may have contracted the virus. He denies any known COVID-19 exposures or high risk activities. ROS: See above HPI for pertinent positives & negatives. A total of 10 systems reviewed and were otherwise negative. PAST MEDICAL HISTORY:See Below PAST SURGICAL HISTORY:See Below FAMILY HISTORY:See Below SOCIAL HISTORY:See Below HOME MEDICATIONS:See Below ALLERGIES:See Below VITALS:See Below PHYSICAL EXAMINATION: GENERAL: Awake, alert, fatigued-appearing, in no distress, BMI 38.6 HENT: Normocephalic, atraumatic. Oropharynx with dry mucous membranes and otherwise unremarkable. EYES: Normal conjunctiva. Sclera non-icteric. NECK: Supple. No nuchal rigidity. FROM. No JVD. RESPIRATORY: Scant intermittent wheeze and diminished at the bases CARDIAC: Regular rate, normal rhythm. Extremities warm and well perfused. Pulses equal. ABDOMEN: Soft, non-distended. No tenderness to palpation. No rebound or guarding. No masses. RECTAL: Deferred. MUSCULOSKELETAL: Chest examination reveals no tenderness. The back is symmetrical on inspection without obvious abnormality. There is no CVA tenderness to palpation. No joint edema. LOWER EXTREMITIES: Calves are equal size bilaterally and non-tender. No edema. No discoloration. NEURO: Normal sensorium. No sensory or motor deficits noted. SKIN: No rash or jaundice noted. 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 age 11 Family History Father No pertinent past medical history Mother Anxiety Aunt Diabetes Social History Smoking Status: Never smoker Tobacco Type: Smokeless Tobacco (Dip or Chew) Second Hand Exposure: No; Do You Dip or Chew Tobacco: Yes (1 can a week); Hx Alcohol Use: Yes Alcohol type: beer Alcohol Intake Frequency: Monthly or Less Hx Substance Use: No Preferred Language: Martiniquais Communication Ability: Effective 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[employer] Required: No Beliefs That Will Affect Care: None marital status: Current Living Situation: Spouse Other Information That Helps Us Care for You: No Feels Safe at Home: Yes Safety Concerns: Feels Safe At This Time Assistive Devices: None Allergies Allergies Allergy/AdvReac Type Severity Reaction Status Date / Time No Known Allergies Allergy Verified 07/31/19 15:50 Home Meds Home Medications Medication Instructions Recorded Confirmed aspirin [Aspir-81] 81 mg PO DAILY 04/04/20 04/04/20 atorvastatin 20 mg PO DAILY 04/04/20 04/04/20 hydrochlorothiazide 12.5 mg PO DAILY 04/04/20 04/04/20 lorazepam 1 mg PO DAILY PRN 04/04/20 04/04/20 losartan 100 mg PO DAILY 04/04/20 04/04/20 metoprolol succinate 50 mg PO DAILY 04/04/20 04/04/20 venlafaxine 150 mg PO DAILY 04/04/20 04/04/20 Results & Data (ED) Vital Signs Vital Signs - 24 hr 04/04/20 10:00 04/04/20 10:44 04/04/20 10:50 Temperature 36.5 C Temperature Source Oral Pulse Rate 88 79 81 Pulse Rate [Apical] Pulse Rate from SpO2 Sensor 79 Pulse Rhythm [Apical] Pulse Strength [Apical] Respiratory Rate 22 22 38 H Respiratory Effort / Characteristics Non-Labored Spontaneous Respiratory Depth Normal Blood Pressure 140/82 124/82 Blood Pressure [Right Arm] Blood Pressure Mean 101 98 Blood Pressure Mean [Right Arm] Blood Pressure Position Sitting Blood Pressure Position [Right Arm] Pulse Oximetry 94 95 Oxygen Delivery Method Room Air Sepsis Recent Fever Within 48 Hours Yes Sepsis New/Unexplained Change in Mental Status No Sepsis Action Taken by Nursing No Action Required Oxygen Flow Rate - Titration Pulse Oximetry Post Tiitration 04/04/20 10:51 04/04/20 10:55 04/04/20 11:00 Temperature Temperature Source Pulse Rate 82 77 Pulse Rate [Apical] Pulse Rate from SpO2 Sensor Pulse Rhythm [Apical] Pulse Strength [Apical] Respiratory Rate 29 H 27 H Respiratory Effort / Characteristics Respiratory Depth Blood Pressure 121/81 Blood Pressure [Right Arm] Blood Pressure Mean 91 Blood Pressure Mean [Right Arm] Blood Pressure Position Blood Pressure Position [Right Arm] Pulse Oximetry 97 Oxygen Delivery Method Room Air Sepsis Recent Fever Within 48 Hours Sepsis New/Unexplained Change in Mental Status Sepsis Action Taken by Nursing Oxygen Flow Rate - Titration Pulse Oximetry Post Tiitration 04/04/20 11:01 04/04/20 11:10 04/04/20 11:20 Temperature Temperature Source Pulse Rate 80 78 81 Pulse Rate [Apical] Pulse Rate from SpO2 Sensor 79 81 Pulse Rhythm [Apical] Pulse Strength [Apical] Respiratory Rate 35 H 27 H 32 H Respiratory Effort / Characteristics Respiratory Depth Blood Pressure Blood Pressure [Right Arm] Blood Pressure Mean Blood Pressure Mean [Right Arm] Blood Pressure Position Blood Pressure Position [Right Arm] Pulse Oximetry 93 94 Oxygen Delivery Method Sepsis Recent Fever Within 48 Hours Sepsis New/Unexplained Change in Mental Status Sepsis Action Taken by Nursing Oxygen Flow Rate - Titration Pulse Oximetry Post Tiitration 04/04/20 11:30 04/04/20 11:31 04/04/20 11:40 Temperature Temperature Source Pulse Rate 82 78 74 Pulse Rate [Apical] Pulse Rate from SpO2 Sensor 81 78 75 Pulse Rhythm [Apical] Pulse Strength [Apical] Respiratory Rate 20 33 H 32 H Respiratory Effort / Characteristics Respiratory Depth Blood Pressure 106/65 Blood Pressure [Right Arm] Blood Pressure Mean 82 Blood Pressure Mean [Right Arm] Blood Pressure Position Blood Pressure Position [Right Arm] Pulse Oximetry 93 92 92 Oxygen Delivery Method Sepsis Recent Fever Within 48 Hours Sepsis New/Unexplained Change in Mental Status Sepsis Action Taken by Nursing Oxygen Flow Rate - Titration Pulse Oximetry Post Tiitration 04/04/20 11:46 04/04/20 11:50 04/04/20 11:58 Temperature Temperature Source Pulse Rate 74 Pulse Rate [Apical] 83 Pulse Rate from SpO2 Sensor 77 Pulse Rhythm [Apical] Regular Pulse Strength [Apical] Normal Respiratory Rate 29 H 18 Respiratory Effort / Characteristics Non-Labored Non-Labored Respiratory Depth Normal Blood Pressure Blood Pressure [Right Arm] 100/65 Blood Pressure Mean Blood Pressure Mean [Right Arm] 76 Blood Pressure Position Blood Pressure Position [Right Arm] Sitting Pulse Oximetry 92 93 96 Oxygen Delivery Method Room Air Room Air Sepsis Recent Fever Within 48 Hours Sepsis New/Unexplained Change in Mental Status Sepsis Action Taken by Nursing Oxygen Flow Rate - Titration Pulse Oximetry Post Tiitration 04/04/20 12:00 04/04/20 12:01 04/04/20 12:10 Temperature Temperature Source Pulse Rate 77 77 82 Pulse Rate [Apical] Pulse Rate from SpO2 Sensor 77 75 Pulse Rhythm [Apical] Pulse Strength [Apical] Respiratory Rate 24 28 H 29 H Respiratory Effort / Characteristics Respiratory Depth Blood Pressure 123/81 Blood Pressure [Right Arm] Blood Pressure Mean 101 Blood Pressure Mean [Right Arm] Blood Pressure Position Blood Pressure Position [Right Arm] Pulse Oximetry 93 92 Oxygen Delivery Method Sepsis Recent Fever Within 48 Hours Sepsis New/Unexplained Change in Mental Status Sepsis Action Taken by Nursing Oxygen Flow Rate - Titration Pulse Oximetry Post Tiitration 04/04/20 12:20 04/04/20 12:31 04/04/20 13:15 Temperature Temperature Source Pulse Rate 76 91 H Pulse Rate [Apical] Pulse Rate from SpO2 Sensor 86 Pulse Rhythm [Apical] Pulse Strength [Apical] Respiratory Rate 29 H 24 Respiratory Effort / Characteristics Respiratory Depth Blood Pressure Blood Pressure [Right Arm] Blood Pressure Mean Blood Pressure Mean [Right Arm] Blood Pressure Position Blood Pressure Position [Right Arm] Pulse Oximetry 95 Oxygen Delivery Method Sepsis Recent Fever Within 48 Hours Sepsis New/Unexplained Change in Mental Status Sepsis Action Taken by Nursing Oxygen Flow Rate - Titration Pulse Oximetry Post Tiitration 04/04/20 13:17 04/04/20 13:20 04/04/20 13:30 Temperature Temperature Source Pulse Rate 79 83 Pulse Rate [Apical] Pulse Rate from SpO2 Sensor 82 78 79 Pulse Rhythm [Apical] Pulse Strength [Apical] Respiratory Rate 30 H 27 H Respiratory Effort / Characteristics Respiratory Depth Blood Pressure 135/84 156/77 H Blood Pressure [Right Arm] Blood Pressure Mean 98 94 Blood Pressure Mean [Right Arm] Blood Pressure Position Blood Pressure Position [Right Arm] Pulse Oximetry 94 91 88 L Oxygen Delivery Method Sepsis Recent Fever Within 48 Hours Sepsis New/Unexplained Change in Mental Status Sepsis Action Taken by Nursing Oxygen Flow Rate - Titration Pulse Oximetry Post Tiitration 04/04/20 13:31 04/04/20 13:40 04/04/20 13:50 Temperature Temperature Source Pulse Rate 73 82 74 Pulse Rate [Apical] Pulse Rate from SpO2 Sensor 75 81 76 Pulse Rhythm [Apical] Pulse Strength [Apical] Respiratory Rate 26 H 26 H 22 Respiratory Effort / Characteristics Respiratory Depth Blood Pressure Blood Pressure [Right Arm] Blood Pressure Mean Blood Pressure Mean [Right Arm] Blood Pressure Position Blood Pressure Position [Right Arm] Pulse Oximetry 92 93 93 Oxygen Delivery Method Sepsis Recent Fever Within 48 Hours Sepsis New/Unexplained Change in Mental Status Sepsis Action Taken by Nursing Oxygen Flow Rate - Titration Pulse Oximetry Post Tiitration 04/04/20 14:00 04/04/20 14:01 04/04/20 14:10 Temperature Temperature Source Pulse Rate 75 81 77 Pulse Rate [Apical] Pulse Rate from SpO2 Sensor 76 79 78 Pulse Rhythm [Apical] Pulse Strength [Apical] Respiratory Rate 22 21 28 H Respiratory Effort / Characteristics Respiratory Depth Blood Pressure 128/97 Blood Pressure [Right Arm] Blood Pressure Mean 111 Blood Pressure Mean [Right Arm] Blood Pressure Position Blood Pressure Position [Right Arm] Pulse Oximetry 93 94 94 Oxygen Delivery Method Sepsis Recent Fever Within 48 Hours Sepsis New/Unexplained Change in Mental Status Sepsis Action Taken by Nursing Oxygen Flow Rate - Titration Pulse Oximetry Post Tiitration 04/04/20 14:22 04/04/20 14:30 04/04/20 14:32 Temperature Temperature Source Pulse Rate 85 76 78 Pulse Rate [Apical] Pulse Rate from SpO2 Sensor 76 77 Pulse Rhythm [Apical] Pulse Strength [Apical] Respiratory Rate 17 16 14 Respiratory Effort / Characteristics Respiratory Depth Blood Pressure 129/95 Blood Pressure [Right Arm] Blood Pressure Mean 100 Blood Pressure Mean [Right Arm] Blood Pressure Position Blood Pressure Position [Right Arm] Pulse Oximetry 99 98 Oxygen Delivery Method Sepsis Recent Fever Within 48 Hours Sepsis New/Unexplained Change in Mental Status Sepsis Action Taken by Nursing Oxygen Flow Rate - Titration Pulse Oximetry Post Tiitration 04/04/20 14:40 04/04/20 14:50 Temperature Temperature Source Pulse Rate 72 Pulse Rate [Apical] Pulse Rate from SpO2 Sensor Pulse Rhythm [Apical] Pulse Strength [Apical] Respiratory Rate 28 H Respiratory Effort / Characteristics Respiratory Depth Blood Pressure Blood Pressure [Right Arm] Blood Pressure Mean Blood Pressure Mean [Right Arm] Blood Pressure Position Blood Pressure Position [Right Arm] Pulse Oximetry 93 Oxygen Delivery Method Room Air Sepsis Recent Fever Within 48 Hours Sepsis New/Unexplained Change in Mental Status Sepsis Action Taken by Nursing Oxygen Flow Rate - Titration 3 Pulse Oximetry Post Tiitration 95 Laboratory Data Attestation: I reviewed the patient's lab results. Result diagrams: 04/04/20 11:08 04/04/20 11:08 Lab Results 04/04/20 04/04/20 04/04/20 Range/Units 11:08 11:08 11:08 WBC 10.63 (4.8-10.8) K/uL RBC 4.87 (4.7-6.1) M/uL Hgb 14.7 (14.0-18.0) g/dL Hct 43.2 (42-52) % MCV 88.7 (80-100) fL MCH 30.2 (25-34) pg MCHC 34.0 (32-36) g/dL RDW Std Deviation 45.9 (36.4-46.3) fL RDW Coeff of Ashley 13.9 (11.5-14.5) % Plt Count 336 (130-400) K/uL MPV 9.7 (7.4-10.4) fL Immature Gran % (Auto) 0.3 % Neut % (Auto) 78.0 % Lymph % (Auto) 14.8 % [place] % (Auto) 6.6 % Eos % (Auto) 0.1 % Baso % (Auto) 0.2 % Neut # (Auto) 8.30 H (1.4-6.5) K/uL Lymph # (Auto) 1.57 (1.2-3.4) K/uL [place] # (Auto) 0.70 H (0.11-0.59) K/uL Eos # (Auto) 0.01 (0-0.5) K/uL Baso # (Auto) 0.02 (0-0.2) K/uL Immature Gran # (Auto) 0.03 H (0.00-0.02) K/uL ESR (0-14) mm/hr PT 11.0 (9.0-12.0) Seconds INR 1.0 (0.9-1.1) APTT 32.1 H (21.0-31.0) Seconds PTT Ratio 1.2 D-Dimer 510 H* (0-500) ug/L FEU Sodium (136-145) mmol/L Potassium (3.5-5.1) mmol/L Chloride (98-107) mmol/L Carbon Dioxide (21-32) mmol/L Anion Gap (3-11) BUN (7-18) mg/dl Creatinine (0.6-1.4) mg/dl Est Cr Clr Drug Dosing ml/min Est GFR ( Amer) Est GFR (Non-Af Amer) BUN/Creatinine Ratio (10-20) Glucose (70-99) mg/dl Lactate (0.4-2.0) mmol/L Calcium (8.5-10.1) mg/dl Magnesium (1.8-2.4) mg/dl Ferritin (8-388) ng/ml Total Bilirubin (0.2-1) mg/dl AST (15-37) U/L ALT (12-78) U/L Alkaline Phosphatase (45-117) U/L Total Creatine Kinase (39-308) U/L Troponin I (0-0.045) ng/ml C-Reactive Protein (0-0.29) mg/dl Total Protein (6.4-8.2) gm/dl Albumin (3.4-5.0) gm/dl Globulin (2.5-4.0) gm/dl Albumin/Globulin Ratio (0.9-2) Procalcitonin < 0.05 (0-0.5) ng/ml 04/04/20 04/04/20 04/04/20 Range/Units 11:08 11:08 11:08 WBC (4.8-10.8) K/uL RBC (4.7-6.1) M/uL Hgb (14.0-18.0) g/dL Hct (42-52) % MCV (80-100) fL MCH (25-34) pg MCHC (32-36) g/dL RDW Std Deviation (36.4-46.3) fL RDW Coeff of Ashley (11.5-14.5) % Plt Count (130-400) K/uL MPV (7.4-10.4) fL Immature Gran % (Auto) % Neut % (Auto) % Lymph % (Auto) % [place] % (Auto) % Eos % (Auto) % Baso % (Auto) % Neut # (Auto) (1.4-6.5) K/uL Lymph # (Auto) (1.2-3.4) K/uL [place] # (Auto) (0.11-0.59) K/uL Eos # (Auto) (0-0.5) K/uL Baso # (Auto) (0-0.2) K/uL Immature Gran # (Auto) (0.00-0.02) K/uL ESR 35 H (0-14) mm/hr PT (9.0-12.0) Seconds INR (0.9-1.1) APTT (21.0-31.0) Seconds PTT Ratio D-Dimer (0-500) ug/L FEU Sodium 137 (136-145) mmol/L Potassium 3.4 L (3.5-5.1) mmol/L Chloride 105 (98-107) mmol/L Carbon Dioxide 26 (21-32) mmol/L Anion Gap 6.0 (3-11) BUN 13 (7-18) mg/dl Creatinine 0.96 (0.6-1.4) mg/dl Est Cr Clr Drug Dosing 108.6 ml/min Est GFR ( Amer) 105.6 Est GFR (Non-Af Amer) 91.2 BUN/Creatinine Ratio 13.6 (10-20) Glucose 118 H (70-99) mg/dl Lactate 0.9 (0.4-2.0) mmol/L Calcium 8.5 (8.5-10.1) mg/dl Magnesium 2.2 (1.8-2.4) mg/dl Ferritin (8-388) ng/ml Total Bilirubin 0.5 (0.2-1) mg/dl AST 24 (15-37) U/L ALT 35 (12-78) U/L Alkaline Phosphatase 65 (45-117) U/L Total Creatine Kinase (39-308) U/L Troponin I < 0.015 (0-0.045) ng/ml C-Reactive Protein (0-0.29) mg/dl Total Protein 7.8 (6.4-8.2) gm/dl Albumin 3.4 (3.4-5.0) gm/dl Globulin 4.4 H (2.5-4.0) gm/dl Albumin/Globulin Ratio 0.8 L (0.9-2) Procalcitonin (0-0.5) ng/ml 04/04/20 Range/Units 11:08 WBC (4.8-10.8) K/uL RBC (4.7-6.1) M/uL Hgb (14.0-18.0) g/dL Hct (42-52) % MCV (80-100) fL MCH (25-34) pg MCHC (32-36) g/dL RDW Std Deviation (36.4-46.3) fL RDW Coeff of Ashley (11.5-14.5) % Plt Count (130-400) K/uL MPV (7.4-10.4) fL Immature Gran % (Auto) % Neut % (Auto) % Lymph % (Auto) % [place] % (Auto) % Eos % (Auto) % Baso % (Auto) % Neut # (Auto) (1.4-6.5) K/uL Lymph # (Auto) (1.2-3.4) K/uL [place] # (Auto) (0.11-0.59) K/uL Eos # (Auto) (0-0.5) K/uL Baso # (Auto) (0-0.2) K/uL Immature Gran # (Auto) (0.00-0.02) K/uL ESR (0-14) mm/hr PT (9.0-12.0) Seconds INR (0.9-1.1) APTT (21.0-31.0) Seconds PTT Ratio D-Dimer (0-500) ug/L FEU Sodium (136-145) mmol/L Potassium (3.5-5.1) mmol/L Chloride (98-107) mmol/L Carbon Dioxide (21-32) mmol/L Anion Gap (3-11) BUN (7-18) mg/dl Creatinine (0.6-1.4) mg/dl Est Cr Clr Drug Dosing ml/min Est GFR ( Amer) Est GFR (Non-Af Amer) BUN/Creatinine Ratio (10-20) Glucose (70-99) mg/dl Lactate (0.4-2.0) mmol/L Calcium (8.5-10.1) mg/dl Magnesium (1.8-2.4) mg/dl Ferritin 957.5 H (8-388) ng/ml Total Bilirubin (0.2-1) mg/dl AST (15-37) U/L ALT (12-78) U/L Alkaline Phosphatase (45-117) U/L Total Creatine Kinase 177 (39-308) U/L Troponin I (0-0.045) ng/ml C-Reactive Protein 8.26 H (0-0.29) mg/dl Total Protein (6.4-8.2) gm/dl Albumin (3.4-5.0) gm/dl Globulin (2.5-4.0) gm/dl Albumin/Globulin Ratio (0.9-2) Procalcitonin (0-0.5) ng/ml Administered Medications Enoxaparin Sodium (Enoxaparin Inj 40 Mg/0.4 Ml Syr) 40 mg SQ Q12H DEXTER Stop: 05/04/20 17:59 Last Admin: 04/04/20 17:26 Dose: 40 mg Documented by: [id number] Guaifenesin/Codeine Phosphate (Guaifenesin/Codeine 200mg/20mg 10ml Udc) 10 ml PO Q6H PRN PRN Reason: Cough Stop: 05/04/20 19:53 Last Admin: 04/04/20 20:22 Dose: 10 ml Documented by: [id number] Sodium Chloride (Sodium Chloride 0.9% 10ml Flush) 30 ml IV Q24H DEXTER Stop: 04/08/20 20:01 Last Admin: 04/04/20 17:27 Dose: 30 ml Documented by: [id number] Discontinued Medications Albuterol (Albuterol Hfa 8 Gm Inhaler) 2 puffs INH NOW ONE Stop: 04/04/20 10:32 Last Admin: 04/04/20 11:23 Dose: 60 puffs Documented by: [id number] Dexamethasone (Dexamethasone Sod Inj 10 Mg/Ml Vial) 10 mg IV NOW ONE Stop: 04/04/20 14:10 Last Admin: 04/04/20 14:21 Dose: 10 mg Documented by: [id number] Diphenhydramine HCl (Diphenhydramine 50 Mg/Ml Vial) 25 mg IV NOW STA Stop: 04/04/20 10:32 Last Admin: 04/04/20 11:22 Dose: 25 mg Documented by: [id number] Guaifenesin (Guaifenesin 600 Mg Tabcr) 600 mg PO NOW STA Stop: 04/04/20 10:32 Last Admin: 04/04/20 11:21 Dose: 600 mg Documented by: [id number] Sodium Chloride (Nss 1000ml) 1,000 mls @ 999 mls/hr IV .Q1H1M ONE Stop: 04/04/20 11:31 Last Infusion: 04/04/20 13:26 Dose: 0 mls/hr Documented by: [id number] Admin: 04/04/20 11:21 Dose: 999 mls/hr Documented by: [id number] Acetaminophen (Ofirmev) 1,000 mg in 100 mls @ 400 mls/hr IV NOW STA Stop: 04/04/20 10:45 Last Infusion: 04/04/20 11:43 Dose: 0 mls/hr Documented by: [id number] Admin: 04/04/20 11:21 Dose: 400 mls/hr Documented by: [id number] Prochlorperazine (Compazine) 2 mls @ 1 mls/min IV ONE ONE Stop: 04/04/20 10:32 Last Admin: 04/04/20 11:21 Dose: 1 mls/min Documented by: [id number] Remdesivir 200 mg/ Sodium (Chloride) 250 mls @ 125 mls/hr IV ONE STA; Protocol Stop: 04/04/20 18:20 Last Infusion: 04/04/20 19:26 Dose: 0 mls/hr Documented by: [id number] Admin: 04/04/20 17:26 Dose: 125 mls/hr Documented by: [id number] Ioversol (Optiray 320 125ml) 119 ml IV ONCE ONE Stop: 04/04/20 12:39 Last Admin: 04/04/20 12:39 Dose: 119 ml Documented by: [id number] Potassium Chloride (Potassium Chloride Crtab 20 Meq Tabcr) 20 meq PO NOW STA Stop: 04/04/20 15:09 Last Admin: 04/04/20 15:36 Dose: 20 meq Documented by: [id number] Tramadol HCl (Tramadol Hcl 50 Mg Tablet) 25 mg PO NOW STA Stop: 04/04/20 15:21 Last Admin: 04/04/20 15:36 Dose: 25 mg Documented by: [id number] Discharge Plan Visit Data Chief Complaint: Illness Stated Complaint: +COVID,COUGHING,SOB,SYNCOPE ED Provider: Ray Davis Discharge Problem: Pneumonia due to COVID-19 virus, Hypoxia, Hypokalemia, Obstructive sleep apnea syndrome Patient Disposition: Admitted As Inpatient Discharge Instructions Interventions: ED Discharge Assessment Last Done: 04/04/20 15:30
[2020-04-04] MEDS ORDERED: SODIUM CHLORIDE 0.9% 1000ML 1,000 ML IV ONE (10:31)
[2020-04-04] MEDS ORDERED: ALBUTEROL HFA 8 GM INHALER INH ONE (10:31)
[2020-04-04] MEDS ORDERED: diphenhydrAMINE 50 MG/ML VIAL IV STA (10:31)
[2020-04-04] MEDS ORDERED: PROCHLORPERAZINE 2 ML IV ONE (10:31)
[2020-04-04] MEDS ORDERED: ACETAMINOPHEN 1,000 MG/100 ML VIAL IV STA (10:31)
[2020-04-04] MEDS ORDERED: guaiFENesin 600 MG TABCR PO STA (10:31)
[2020-04-04 11:20] LABS: Basophils # (auto) 0.02 K/uL (0-0.2); Basophils % (auto) 0.2 %; Eosinophils # (auto) 0.01 K/uL (0-0.5); Eosinophils % (auto) 0.1 %; Hematocrit (blood only) 43.2 % (42-52); Hemoglobin 14.7 g/dL (14.0-18.0); Immature Granulocytes # (auto) 0.03 K/uL (0.00-0.02); Immature Granulocytes % (auto) 0.3 %; Lymphocytes # (auto) 1.57 K/uL (1.2-3.4); Lymphocytes % (auto) 14.8 %; Mean Corpuscular Hemoglobin 30.2 pg (25-34); Mean Corpuscular Volume 88.7 fL (80-100); Mean Platelet Volume 9.7 fL (7.4-10.4); Monocytes % (auto) 6.6 %; Platelet Count 336 K/uL (130-400); RDW Coefficient of Variation 13.9 % (11.5-14.5); RDW Standard Deviation 45.9 fL (36.4-46.3); Red Blood Count 4.87 M/uL (4.7-6.1); White Blood Count 10.63 K/uL (4.8-10.8)
--- NOTE | 2020-04-04 11:28 | XRay Report ---
XR chest 1V portable HISTORY: 49 years-old Male SEPSIS acute sepsis COMPARISON: Chest radiograph 07/31/2019 TECHNIQUE: Portable AP view of the chest FINDINGS: Cardiac silhouette is mildly enlarged. Hypoinflation. No pneumothorax, pleural effusion or overt pulm onary edema. No definite airspace consolidation to suggest pneumonia. Subsegmental left lung base opa cities appear similar to comparison suggestive of atelectasis. Degenerative changes of the shoulders and spine. IMPRESSION: No acute process. ACT 112: Negative or not required by law. The above report was generated using voice recognition software. It may contain grammatical, syntax o r spelling errors. Electronically signed by: Eric Streeter M.D. 04/04/2020 11:27 AM
[2020-04-04 11:34] LABS: Partial Thromboplastin Ratio 1.2; Partial Thromboplastin Time 32.1 Seconds (21.0-31.0)
[2020-04-04 11:40] LABS: Alanine Aminotransferase 35 U/L (12-78); Albumin Level 3.4 gm/dl (3.4-5.0); Aspartate Aminotransferase 24 U/L (15-37); BUN Creatinine Ratio 13.6 (10-20); Blood Urea Nitrogen 13 mg/dl (7-18); Calcium 8.5 mg/dl (8.5-10.1); Carbon Dioxide 26 mmol/L (21-32); Chloride 105 mmol/L (98-107); Creatinine Clr Calc Pharmacy 108.6 ml/min; Est GFR (African American) 105.6; Est GFR (Non-African American) 91.2; Glucose 118 mg/dl (70-99); Magnesium 2.2 mg/dl (1.8-2.4); Potassium 3.4 mmol/L (3.5-5.1); Sodium 137 mmol/L (136-145)
[2020-04-04 11:41] LABS: D Dimer 510 ug/L FEU (0-500)
[2020-04-04 11:45] LABS: Albumin Globulin Ratio 0.8 (0.9-2); Alkaline Phosphatase 65 U/L (45-117); Bilirubin,Total 0.5 mg/dl (0.2-1); Globulin 4.4 gm/dl (2.5-4.0); Total Protein 7.8 gm/dl (6.4-8.2); Troponin I < 0.015 ng/ml (0-0.045)
[2020-04-04] MEDS ORDERED: OPTIRAY 320 125ml IV ONE (12:38)
--- NOTE | 2020-04-04 13:04 | Electrocardiogram Report ---
Test Reason : Blood Pressure : / mmHG Vent. Rate : 077 BPM Atrial Rate : 077 BPM P-R Int : 162 ms QRS Dur : 104 ms QT Int : 404 ms P-R-T Axes : 063 -26 039 degrees QTc Int : 457 ms Normal sinus rhythm Minimal voltage criteria for LVH, may be normal variant Borderline ECG When compared with ECG of 23-MAY-2019 10:48, No significant change was found Confirmed by Jamshid Carpenter ([id number]) on 04/04/2020 1:03:47 PM Referred By: Josselyn Aguillon Confirmed By:Micheal Carpenter
--- NOTE | 2020-04-04 13:09 | CT Scan Report ---
CT angio chest PE protocol CT DOSE: 561.40 mGycm HISTORY: 49 years-old Male with PE. Acute cough with shortness of breath. COVID Positive. TECHNIQUE: Multiple CTA images of the chest were obtained after the intravenous administration of 119 ml Optiray 320. Coronal and sagittal MIPS were obtained from the axial data set and were submitted for review. All measurements were obtained according to NASCET criteria. A dose lowering technique w as utilized adhering to the principles of ALARA. COMPARISON: Chest radiograph of same day, CT abdomen 07/31/2019. FINDINGS: CTA: Heart is upper limits of normal in size. Moderate coronary artery calcifications. There is no thoraci c aortic aneurysm or dissection. The pulmonary artery is opacified to level the segmental branches an d demonstrates no filling defects to suggest thromboembolic disease. CT CHEST: Unremarkable thyroid. Mildly enlarged subcarinal lymph nodes measure up to 10 mm. No pneumothorax, pl eural effusion or overt pulmonary edema. Patchy multilobar distribution of groundglass opacities. The re are no suspicious pulmonary nodules or masses. Central airways are patent. Mild nonspecific distal esophageal wall thickening. Splenosis of the upper abdomen. Unremarkable soft tissues. Bones appear intact. No acute fracture. IMPRESSION: 1. No evidence of pulmonary thromboembolic disease. 2. Patchy multilobar distribution of groundglass opacities are compatible with a nonspecific infectio us or inflammatory pneumonitis such as viral pneumonia. 3. Mild subcarinal adenopathy, likely reactive. 4. Moderate coronary artery calcifications. ACT 112: Negative or not required by law. The above report was generated using voice recognition software. It may contain grammatical, syntax o r spelling errors. Electronically signed by: Eric Streeter M.D. 04/04/2020 1:07 PM
[2020-04-04] MEDS ORDERED: DEXAMETHASONE SOD INJ 10 MG/ML VIAL IV ONE (14:09)
[2020-04-04] MEDS ORDERED: POTASSIUM CHLORIDE CRTAB 20 MEQ TABCR PO STA (15:08)
--- NOTE | 2020-04-04 15:09 | History & Physical Report ---
Date of Service April 04, 2020 Assessment & Plan (1) Pneumonia due to COVID-19 virus: Admit to med tele Start remdesevir 200mg x 1 now; then 100mg daily x 4 days Dexamethasone 6mg IV daily Albuterol DMI q4h prn SOB/Wheezing incentive spirometry encourage self proning discussion was had about convalescent plasma with Dr. Love - pt with B cell lymphoma and asplenia -Pt undecided at this time for this therapy monitor LFT, CK D-dimer elevated, no PE on CT PE (2) Hypokalemia: supplement with 20meq KCL x 1 now monitor bmp (3) Obstructive sleep apnea syndrome: on CPAP at HS use as tolerated (4) Prediabetes: last a1c 6.5 06/2019 admitting bsg 118 obtain a1c in a.m. 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 Aguillon upon discharge Pt care was collaborated with Dr. Love. I, Vince Love MD, seen and examined the patient, and adjusted above note. Care coordinated with Jesusita Ballard PA-C. History of Present Illness Chief Complaint: Cough, shortness of breath, COVID-19 Primary Care Provider: Josselyn Aguillon MD Mr. 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 Patient reports that 11 days ago he started to feel unwell, with increased shortness of breath, cough, also feeling lightheaded with headaches and low grade fevers. He was staying at home, but after several days not getting better he got tested as outpatient and was found to be positive for COVID-19. He reports that he was having more chills at home and body aches, also has been having diarrhea on and off for these past 11 days. He reports sometimes diarrhea resolves, however he did have some loose stool this morning. He also reports weight loss about 10 pounds during this short time period, loss of appetite, reports taste and smell is poor. In emergency room, D-dimer was obtained and elevated at 500s, CT PE negative for PE. Patient was satting about 91% on room air, and therefore was started on 2 L of supplemental oxygen via nasal cannula. Has been tachypneic with respiration rate above 20. He was started on the dexamethasone in the ED, and also received IV fluids and albuterol. I had a conversation with patient about remdesivir, and patient is in agreement to start this medication, also discussed possible convalescent plasma, patient will think about this option. Allergies Allergy/AdvReac Type Severity Reaction Status Date / Time No Known Allergies Allergy Verified 07/31/19 15:50 Home Medications Medication Instructions Recorded Confirmed Type aspirin [Aspir-81] 81 mg PO DAILY 04/04/20 04/04/20 History atorvastatin 20 mg PO DAILY 04/04/20 04/04/20 History hydrochlorothiazide 12.5 mg PO DAILY 04/04/20 04/04/20 History lorazepam 1 mg PO DAILY PRN 04/04/20 04/04/20 History losartan 100 mg PO DAILY 04/04/20 04/04/20 History metoprolol succinate 50 mg PO DAILY 04/04/20 04/04/20 History venlafaxine 150 mg PO DAILY 04/04/20 04/04/20 History Past Med/Surg History Medical History Anxiety B-cell 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 BPH (benign prostatic hyperplasia) History of nephrolithiasis History of supraventricular tachycardia Hyperlipidemia Hypertension Kidney stones Obstructive sleep apnea syndrome Prediabetes Premature ventricular beats Surgical History H/O cardiac radiofrequency ablation FOR "EXTRA" HEART BEATS > 4 YRS AGO > [place] H/O hand surgery LEFT History of colonoscopy History of cystoscopy removal of stone, stent placed History of nasal surgery deviated septum History of splenectomy 2/2 to trauma age 11 Family History Father No pertinent past medical history Mother Anxiety Aunt Diabetes Social History Smoking Status: Never smoker Tobacco Type: Smokeless Tobacco (Dip or Chew) Second Hand Exposure: No; Do You Dip or Chew Tobacco: Yes (1 can a week); Hx Alcohol Use: Yes Alcohol type: beer Alcohol Intake Frequency: Monthly or Less Hx Substance Use: No Preferred Language: Iranian Communication Ability: Effective 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 Beliefs That Will Affect Care: None marital status: Current Living Situation: Spouse and Family Feels Safe at Home: Yes Assistive Devices: None Review of Systems Review of Systems: All systems reviewed & are unremarkable except as noted in HPI & below Constitutional: + fever (low grade), + chills, + body aches and + weight loss Respiratory: + cough and + dyspnea Cardiovascular: no chest pain, no palpitations and no edema Gastrointestinal: + diarrhea/loose stools; no abdominal pain, no nausea and no vomiting Genitourinary: no problem reported Musculoskeletal: no problem reported Integumentary: no problem reported Neurologic: no problem reported Psychiatric: no problem reported Endocrine: no problem reported Hematologic / Lymphatic: no problem reported Allergy / Immunological: no problem reported Physical Exam Constitutional: WD/WN, vitals as above + ill appearing and + obese Eyes: PERRL, conjunctivae normal, anicteric sclerae ENMT: external ear and nose normal, oropharynx normal Neck: normal visual inspection thick neck Respiratory: + cough, able to speak in complete sentences and + tachypneic Auscultation: + rhonchi (mild bilaterally); no crackles and no wheezes Cardiovascular: RRR, no murmur, no edema Chest (Breasts): Chest: normal inspection of chest Gastrointestinal (Abdomen): Inspection/Auscultation: abdomen normal to inspection and normal bowel sounds; abdomen not distended and no abdominal edema Percussion/Palpation: abdomen soft; abdomen nontender, no guarding and abdomen not rigid Musculoskeletal: no cyanosis or clubbing, extremities motor strength 5/5 Head/Neck/Chest: normocephalic and head atraumatic Extremities: extremities normal to inspection Skin: no rashes, warm and dry Neurologic: PERRL, EOMI, accommodation nl, no face palsy, no dysarthria moves all extremities and awake; no focal motor deficits Speech / Cognition: normal speech Psychiatric: A+Ox3, euthymic affect Genitourinary: no CVA tenderness Lymphatic: no lymphedema Results & Data Results & Data ([facility]) Vital Signs (Past 12 Hours) Vital Signs Temp Pulse Pulse Resp BP BP Pulse Ox 04/04/20 14:50 93 04/04/20 14:40 72 28 H 04/04/20 14:32 78 14 129/95 98 04/04/20 14:30 76 16 99 04/04/20 14:22 85 17 04/04/20 14:10 77 28 H 94 04/04/20 14:01 81 21 94 04/04/20 14:00 75 22 128/97 93 04/04/20 13:50 74 22 93 04/04/20 13:40 82 26 H 93 04/04/20 13:31 73 26 H 92 04/04/20 13:30 83 27 H 156/77 H 88 L 04/04/20 13:20 79 30 H 91 04/04/20 13:17 135/84 94 04/04/20 13:15 95 04/04/20 12:31 91 H 24 04/04/20 12:20 76 29 H 04/04/20 12:10 82 29 H 04/04/20 12:01 77 28 H 92 04/04/20 12:00 77 24 123/81 93 04/04/20 11:58 83 18 100/65 96 04/04/20 11:50 74 29 H 93 04/04/20 11:46 92 04/04/20 11:40 74 32 H 92 04/04/20 11:31 78 33 H 92 04/04/20 11:30 82 20 106/65 93 04/04/20 11:20 81 32 H 94 04/04/20 11:10 78 27 H 93 04/04/20 11:01 80 35 H 04/04/20 11:00 77 27 H 121/81 04/04/20 10:55 97 04/04/20 10:51 82 29 H 04/04/20 10:50 81 38 H 124/82 04/04/20 10:44 79 22 95 04/04/20 10:00 36.5 C 88 22 140/82 94 Laboratory Results Short CBC 04/04/20 Range/Units 11:08 WBC 10.63 (4.8-10.8) K/uL Hgb 14.7 (14.0-18.0) g/dL Hct 43.2 (42-52) % Plt Count 336 (130-400) K/uL BMP 04/04/20 11:08 Sodium 137 Potassium 3.4 L Chloride 105 Carbon Dioxide 26 BUN 13 Creatinine 0.96 Glucose 118 H Calcium 8.5 Cardiac Enzymes 04/04/20 Range/Units 11:08 Troponin I < 0.015 (0-0.045) ng/ml Liver Function 04/04/20 Range/Units 11:08 Total Bilirubin 0.5 (0.2-1) mg/dl AST 24 (15-37) U/L ALT 35 (12-78) U/L Alkaline Phosphatase 65 (45-117) U/L Albumin 3.4 (3.4-5.0) gm/dl Diagnostic Findings Chest CTA: IMPRESSION: 1. No evidence of pulmonary thromboembolic disease. 2. Patchy multilobar distribution of groundglass opacities are compatible with a nonspecific infectious or inflammatory pneumonitis such as viral pneumonia. 3. Mild subcarinal adenopathy, likely reactive. 4. Moderate coronary artery calcifications. CXR: IMPRESSION: No acute process. Medications Administered Discontinued Medications Albuterol (Albuterol Hfa 8 Gm Inhaler) 2 puffs INH NOW ONE Stop: 04/04/20 10:32 Last Admin: 04/04/20 11:23 Dose: 60 puffs Documented by: [id number] Dexamethasone (Dexamethasone Sod Inj 10 Mg/Ml Vial) 10 mg IV NOW ONE Stop: 04/04/20 14:10 Last Admin: 04/04/20 14:21 Dose: 10 mg Documented by: [id number] Diphenhydramine HCl (Diphenhydramine 50 Mg/Ml Vial) 25 mg IV NOW STA Stop: 04/04/20 10:32 Last Admin: 04/04/20 11:22 Dose: 25 mg Documented by: [id number] Guaifenesin (Guaifenesin 600 Mg Tabcr) 600 mg PO NOW STA Stop: 04/04/20 10:32 Last Admin: 04/04/20 11:21 Dose: 600 mg Documented by: [id number] Sodium Chloride (Nss 1000ml) 1,000 mls @ 999 mls/hr IV .Q1H1M ONE Stop: 04/04/20 11:31 Last Infusion: 04/04/20 13:26 Dose: 0 mls/hr Documented by: [id number] Admin: 04/04/20 11:21 Dose: 999 mls/hr Documented by: [id number] Acetaminophen (Ofirmev) 1,000 mg in 100 mls @ 400 mls/hr IV NOW STA Stop: 04/04/20 10:45 Last Infusion: 04/04/20 11:43 Dose: 0 mls/hr Documented by: [id number] Admin: 04/04/20 11:21 Dose: 400 mls/hr Documented by: [id number] Prochlorperazine (Compazine) 2 mls @ 1 mls/min IV ONE ONE Stop: 04/04/20 10:32 Last Admin: 04/04/20 11:21 Dose: 1 mls/min Documented by: [id number] Ioversol (Optiray 320 125ml) 119 ml IV ONCE ONE Stop: 04/04/20 12:39 Last Admin: 04/04/20 12:39 Dose: 119 ml Documented by: [id number] ECG Rate (beats per minute): 77 Rhythm: normal sinus Code Status & VTE Plan Code Status Full Code VTE Prophylaxis Plan VTE Prophylaxis will be ordered: Yes
[2020-04-04] MEDS ORDERED: traMADol HCL 50 MG TABLET PO STA (15:20)
[2020-04-04 16:02] LABS: C Reactive Protein 8.26 mg/dl (0-0.29); Ferritin 957.5 ng/ml (8-388)
[2020-04-04] MEDS ORDERED: ACETAMINOPHEN 325 MG TAB PO PRN (16:21)
[2020-04-04] MEDS ORDERED: POLYETHYLENE (MIRALAX) 17 GM PACK PO PRN (16:21)
[2020-04-04] MEDS ORDERED: REMDESIVIR 200 MG in SODIUM CHLORIDE 0.9% 210 ML IV STA (16:21)
[2020-04-04] MEDS ORDERED: ONDANSETRON INJ 2 MG/ML 2 ML VIAL IV PRN (16:21)
[2020-04-04] MEDS ORDERED: ALUMINUM/MAGNESIUM SUSP 30 ML UDC PO PRN (16:21)
[2020-04-04] MEDS ORDERED: MAGNESIUM HYDROXIDE SUSP 30 ML UDC PO PRN (16:21)
[2020-04-04] MEDS ORDERED: LORazepam 1 MG TAB PO PRN (16:27)
[2020-04-04] MEDS ORDERED: ALBUTEROL HFA 8 GM INHALER INH PRN (16:31)
[2020-04-04] MEDS: ENOXAPARIN INJ 40 MG/0.4 ML SYR SQ SCH (17:26)
[2020-04-04] MEDS: SODIUM CHLORIDE 0.9% 10ML FLUSH IV SCH (17:27)
[2020-04-05 07:14] LABS: Basophils # (auto) 0.02 K/uL (0-0.2); Basophils % (auto) 0.2 %; Hematocrit (blood only) 43.3 % (42-52); Hemoglobin 14.6 g/dL (14.0-18.0); Immature Granulocytes # (auto) 0.01 K/uL (0.00-0.02); Immature Granulocytes % (auto) 0.1 %; Lymphocytes % (auto) 13.5 %; Mean Corpuscular Hemoglobin 29.9 pg (25-34); Mean Corpuscular Hgb Conc 33.7 g/dL (32-36); Mean Corpuscular Volume 88.7 fL (80-100); Mean Platelet Volume 9.9 fL (7.4-10.4); Monocytes # (auto) 0.55 K/uL (0.11-0.59); Monocytes % (auto) 5.7 %; Neutrophils # (auto) 7.72 K/uL (1.4-6.5); Neutrophils % (auto) 80.5 %; Platelet Count 386 K/uL (130-400); RDW Coefficient of Variation 13.8 % (11.5-14.5); RDW Standard Deviation 45.1 fL (36.4-46.3); Red Blood Count 4.88 M/uL (4.7-6.1)
[2020-04-05 07:42] LABS: Estimated Average Glucose 148 mg/dl; Hemoglobin A1C 6.8 % (4.5-5.6)
[2020-04-05 07:47] LABS: Alanine Aminotransferase 31 U/L (12-78); Albumin Level 3.1 gm/dl (3.4-5.0); Alkaline Phosphatase 63 U/L (45-117); Aspartate Aminotransferase 23 U/L (15-37); BUN Creatinine Ratio 18.2 (10-20); Bilirubin Direct < 0.1 mg/dl (0-0.2); Bilirubin,Total 0.4 mg/dl (0.2-1); Blood Urea Nitrogen 13 mg/dl (7-18); Calcium 8.2 mg/dl (8.5-10.1); Carbon Dioxide 27 mmol/L (21-32); Chloride 107 mmol/L (98-107); Creatinine Clr Calc Pharmacy 154.9 ml/min; Est GFR (African American) 125.2; Glucose 148 mg/dl (70-99); Potassium 4.1 mmol/L (3.5-5.1); Sodium 138 mmol/L (136-145); Total Protein 7.5 gm/dl (6.4-8.2)
[2020-04-05] MEDS ORDERED: dexAMETHasone 6 MG in SYRINGE 0 ML IV SCH (09:00)
[2020-04-05] MEDS: ENOXAPARIN INJ 40 MG/0.4 ML SYR SQ SCH ×2 (09:19→20:00)
[2020-04-05] MEDS: METOPROLOL SUCC 50MG EXT REL TAB PO SCH (09:21)
[2020-04-05] MEDS: ATORVASTATIN 20 MG TAB PO SCH (09:21)
[2020-04-05] MEDS: ASPIRIN 81 MG ECTAB PO SCH (09:22)
[2020-04-05] MEDS: LOSARTAN POTASSIUM 50 MG TAB PO SCH (09:22)
[2020-04-05] MEDS: hydroCHLOROthiazide 25 MG TAB PO SCH (09:22)
[2020-04-05] MEDS: VENLAFAXINE HCL XR 150 MG CAPXR PO SCH (09:23)
[2020-04-05] MEDS ORDERED: LORazepam 1 MG TAB PO PRN (14:59)
--- NOTE | 2020-04-05 15:47 | Hospitalist Progress Note ---
Date of Service April 05, 2020 Assessment & Plan (1) Pneumonia due to COVID-19 virus: Has had a prolonged severe illness. Would quarantine for at least 20 days. Cont telemetry monitoring but appears improved. Cont remdesivir and dexamethasone. Discussed risk/benefit of conv plasma at this point and wouldn't recommend it. Pt verbalized understanding of treatment plan. cont to encourage self proning (2) Obstructive sleep apnea syndrome: on CPAP qHS (3) DMII (diabetes mellitus, type 2): New dx of DMII with A1C 6.8. Currently on dexamethasone so need to have some insulin coverage on board. Gave some correction coverage and min glargine for now and continue to check BSG ACHS. Adjust regimen as needed to achieve inpatient goals. (4) Hyperlipidemia: on statin therapy per home regimen and LFTs are WNL, cont trending while patient on remdesivir. Limit Tylenol usage and use Ibuprofen as needed. (5) Hypertension: At goal, cont metoprolol, HCTZ and Losartan per home regimen. 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 This is a severe COVID infection in an immune compromised patient. Cont plan as above. Will be here through the weekend at a minimum. Ilene Moreno DO [facility] Hospitalist Admission and Anticipated Discharge Date Admission Date: April 04, 2020 Subjective cc: 49 yo M with severe COVID pneumonia Symptoms since 03/25, formally tested positive outpatient 03/29. Symptoms worsened over last couple of days and he is now hypoxic. Reports feeling better today than yesterday. Using Robitussin AC for cough which helps. ROS otherwise negative. Review of Systems Review of Systems: All systems reviewed & are unremarkable except as noted in Subjective Physical Exam Physical Exam: CONSTITUTIONAL: obese, vitals as above, generally well- appearing EYES: normal conjunctivae, no scleral icterus ENT: external ear and nose normal, oropharynx clear, MMM RESPIRATORY: clear to auscultation bilaterally, no crackles, rales or wheezes, normal respiratory effort CARDIOVASCULAR: regular rate and rhythm, S1 and 2 heard without murmurs, gallops or rubs, no JVD, no peripheral edema GASTROINTESTINAL: normal bowel sounds, soft, nontender, nondistended, no guarding. MUSCULOSKELETAL: strength 5/5 throughout, head is normocephalic and atraumatic SKIN: warm and dry NEUROLOGIC: No facial palsy, no dysarthria. CN 2-12 grossly intact, no sensory deficit, normal cognition, normal speech, no tremor. No gross focal deficits. PSYCHIATRIC: alert cooperative and oriented to person, place and time. Results & Data Results & Data ([facility]) Vital Signs (Past 12 Hours) Vital Signs Temp Pulse Pulse Resp BP Pulse Ox Pulse Ox 04/05/20 15:21 85 04/05/20 11:13 36.7 C 78 20 125/61 97 04/05/20 10:31 92 04/05/20 08:00 83 04/05/20 07:59 36.7 C 89 20 148/75 H 94 04/05/20 04:18 36.4 C L 83 20 102/66 93 Laboratory Results Short CBC 04/05/20 Range/Units 06:36 WBC 9.60 (4.8-10.8) K/uL Hgb 14.6 (14.0-18.0) g/dL Hct 43.3 (42-52) % Plt Count 386 (130-400) K/uL BMP 04/05/20 06:36 Sodium 138 Potassium 4.1 D Chloride 107 Carbon Dioxide 27 BUN 13 Creatinine 0.72 Glucose 148 H Calcium 8.2 L Cardiac Enzymes 04/04/20 Range/Units 11:08 Total Creatine Kinase 177 (39-308) U/L Liver Function 04/05/20 Range/Units 06:36 Total Bilirubin 0.4 (0.2-1) mg/dl Direct Bilirubin < 0.1 (0-0.2) mg/dl AST 23 (15-37) U/L ALT 31 (12-78) U/L Alkaline Phosphatase 63 (45-117) U/L Albumin 3.1 L (3.4-5.0) gm/dl Medications Administered Current Inpatient Medications Acetaminophen (Acetaminophen 325 Mg Tab) 650 mg PO Q4H PRN PRN Reason: Pain or Fever Stop: 05/04/20 16:20 Last Admin: 04/05/20 09:17 Dose: 650 mg Documented by: Al Hydrox/Mg Hydrox/Simethicone (Aluminum/Magnesium Susp 30 Ml Udc) 15 ml PO Q4H PRN PRN Reason: Dyspepsia Stop: 05/04/20 16:20 Albuterol (Albuterol Hfa 8 Gm Inhaler) 2 puffs INH Q4R PRN PRN Reason: SOB/wheezing Stop: 05/04/20 16:30 Aspirin (Aspirin 81 Mg Ectab) 81 mg PO DAILY [facility] Stop: 05/05/20 08:59 Last Admin: 04/05/20 09:22 Dose: 81 mg Documented by: Atorvastatin Calcium (Atorvastatin 20 Mg Tab) 20 mg PO DAILY [facility] Stop: 05/05/20 08:59 Last Admin: 04/05/20 09:21 Dose: 20 mg Documented by: Dexamethasone (Dexamethasone 4 Mg Tab) 6 mg PO DAILY [facility] Stop: 04/13/21 23:59 Enoxaparin Sodium (Enoxaparin Inj 40 Mg/0.4 Ml Syr) 40 mg SQ Q12H [facility] Stop: 05/04/20 17:59 Last Admin: 04/05/20 09:19 Dose: 40 mg Documented by: Guaifenesin/Codeine Phosphate (Guaifenesin/Codeine 200mg/20mg 10ml Udc) 10 ml PO Q6H PRN PRN Reason: Cough Stop: 05/04/20 19:53 Last Admin: 04/05/20 09:17 Dose: 10 ml Documented by: Hydrochlorothiazide (Hydrochlorothiazide 25 Mg Tab) 12.5 mg PO DAILY [facility] Stop: 05/05/20 08:59 Last Admin: 04/05/20 09:22 Dose: 12.5 mg Documented by: Remdesivir 100 mg/ Sodium (Chloride) 250 mls @ 250 mls/hr IV Q24H [facility]; Protocol Stop: 04/08/20 20:59 Lorazepam (Lorazepam 1 Mg Tab) 1 mg PO HS PRN PRN Reason: Anxiety Stop: 05/04/20 16:26 Losartan Potassium (Losartan Potassium 50 Mg Tab) 100 mg PO DAILY [facility] Stop: 05/05/20 08:59 Last Admin: 04/05/20 09:22 Dose: 100 mg Documented by: Magnesium Hydroxide (Magnesium Hydroxide Susp 30 Ml Udc) 30 ml PO Q12H PRN PRN Reason: Constipation Stop: 05/04/20 16:20 Metoprolol Succinate (Metoprolol Succ 50mg Ext Rel Tab) 50 mg PO DAILY [facility] Stop: 05/05/20 08:59 Last Admin: 04/05/20 09:21 Dose: 50 mg Documented by: Ondansetron HCl (Ondansetron Inj 2 Mg/Ml 2 Ml Vial) 4 mg IV Q6H PRN PRN Reason: Nausea Stop: 05/04/20 16:20 Polyethylene Glycol (Polyethylene (Miralax) 17 Gm Pack) 17 gm PO DAILY PRN PRN Reason: Constipation Stop: 05/04/20 16:20 Sodium Chloride (Sodium Chloride 0.9% 10ml Flush) 30 ml IV Q24H [facility] Stop: 04/08/20 20:01 Last Admin: 04/04/20 17:27 Dose: 30 ml Documented by: Venlafaxine HCl (Venlafaxine Hcl Xr 150 Mg Capxr) 150 mg PO DAILY [facility] Stop: 05/05/20 08:59 Last Admin: 04/05/20 09:23 Dose: 150 mg Documented by:
[2020-04-05] MEDS ORDERED: GLUCAGON FOR INJ 1 MG VIAL SQ PRN (15:51)
[2020-04-05] MEDS ORDERED: CARBOHYDRATES FOR HYPOGLYCEMIA PO PRN (15:51)
[2020-04-05] MEDS ORDERED: GLUCOSE 10 TABS/TUBE PO PRN (15:51)
[2020-04-05] MEDS ORDERED: DEXTROSE 50% 50 ML SYRINGE IV PRN (15:51)
[2020-04-05] MEDS ORDERED: GLUCOSE 40% GEL 15 GM TUBE PO PRN (15:51)
[2020-04-05] MEDS: INSULIN ASPART 100 UNITS/ML 3 ML PEN SC SCH ×2 (17:11→20:35)
[2020-04-05] MEDS ORDERED: IBUPROFEN 200 MG TAB PO STA (19:27)
[2020-04-05] MEDS: SODIUM CHLORIDE 0.9% 10ML FLUSH IV SCH (20:28)
[2020-04-05] MEDS: REMDESIVIR 100mg: Days 2-5 IV SCH (20:28)
[2020-04-05] MEDS: INSULIN GLARGINE SOLOSTAR 100 UNITS/ML 3 ML PEN SC SCH (20:30)
[2020-04-06 04:53] LABS: Creatinine Clr Calc Pharmacy 132.6 ml/min; Est GFR (African American) 117.5; Est GFR (Non-African American) 101.4
[2020-04-06] MEDS ORDERED: dexAMETHasone 6 MG in SYRINGE 0 ML PO SCH (09:00)
[2020-04-06] MEDS: METOPROLOL SUCC 50MG EXT REL TAB PO SCH (17:18)
[2020-04-06] MEDS: ASPIRIN 81 MG ECTAB PO SCH (17:19)
[2020-04-06] MEDS: VENLAFAXINE HCL XR 150 MG CAPXR PO SCH (17:19)
[2020-04-06] MEDS: ATORVASTATIN 20 MG TAB PO SCH (17:19)
[2020-04-06] MEDS: dexAMETHasone 4 MG TAB PO SCH (17:19)
[2020-04-06] MEDS: LOSARTAN POTASSIUM 50 MG TAB PO SCH (17:19)
[2020-04-06] MEDS: hydroCHLOROthiazide 25 MG TAB PO SCH (17:19)
[2020-04-06] MEDS: ENOXAPARIN INJ 40 MG/0.4 ML SYR SQ SCH ×2 (17:20→19:54)
[2020-04-06] MEDS: INSULIN ASPART 100 UNITS/ML 3 ML PEN SC SCH ×4 (17:20→20:41)
[2020-04-06] MEDS ORDERED: IBUPROFEN 200 MG TAB PO STA ×2 (18:35→19:41)
--- NOTE | 2020-04-06 19:47 | Hospitalist Progress Note ---
Date of Service April 06, 2020 Assessment & Plan (1) Pneumonia due to COVID-19 virus: Has had a prolonged severe illness. Would quarantine for at least 20 days. Cont pulse ox monitoring but OK to dc tele. Cont remdesivir and dexamethasone. CP not recommended with late presentation. Ibuprofen for POLLOCK likely 2/2 steroids. (2) Obstructive sleep apnea syndrome: on CPAP qHS (3) DMII (diabetes mellitus, type 2): New dx of DMII with A1C 6.8. Currently on dexamethasone so need to have some insulin coverage on board. Gave some correction coverage and min glargine for now and continue to check BSG ACHS. Adjust regimen as needed to achieve inpatient goals. (4) Hyperlipidemia: on statin therapy per home regimen and LFTs are WNL, cont trending while patient on remdesivir. Limit Tylenol usage and use Ibuprofen as needed. (5) Hypertension: At goal, cont metoprolol, HCTZ and Losartan per home regimen. 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 This is a severe COVID infection in an immune compromised patient. Likely dc to home in am. Plan for two step eval in am. Il[facility] and Anticipated Discharge Date Admission Date: April 04, 2020 Subjective cc: covid infection doing well weaning off oxygen today coughing less afebrile +Headache Review of Systems Review of Systems: All systems reviewed & are unremarkable except as noted in Subjective Physical Exam Physical Exam: CONSTITUTIONAL: obese, vitals as above, generally well- appearing EYES: normal conjunctivae, no scleral icterus ENT: external ear and nose normal, oropharynx clear, MMM RESPIRATORY: clear to auscultation bilaterally, no crackles, rales or wheezes, normal respiratory effort CARDIOVASCULAR: regular rate and rhythm, S1 and 2 heard without murmurs, gallops or rubs, no JVD, no peripheral edema GASTROINTESTINAL: normal bowel sounds, soft, nontender, nondistended, no guarding. MUSCULOSKELETAL: strength 5/5 throughout, head is normocephalic and atraumatic SKIN: warm and dry NEUROLOGIC: No facial palsy, no dysarthria. CN 2-12 grossly intact, no sensory deficit, normal cognition, normal speech, no tremor. No gross focal deficits. PSYCHIATRIC: alert cooperative and oriented to person, place and time.
[2020-04-06] MEDS: REMDESIVIR 100mg: Days 2-5 IV SCH (19:53)
[2020-04-06] MEDS: SODIUM CHLORIDE 0.9% 10ML FLUSH IV SCH (19:54)
[2020-04-06] MEDS: INSULIN GLARGINE SOLOSTAR 100 UNITS/ML 3 ML PEN SC SCH (20:41)
[2020-04-07 07:29] LABS: Mean Corpuscular Hemoglobin 29.6 pg (25-34); Mean Corpuscular Hgb Conc 33.3 g/dL (32-36); Mean Corpuscular Volume 88.8 fL (80-100); Platelet Count 481 K/uL (130-400); RDW Coefficient of Variation 13.7 % (11.5-14.5); RDW Standard Deviation 44.6 fL (36.4-46.3); Red Blood Count 4.73 M/uL (4.7-6.1); White Blood Count 12.92 K/uL (4.8-10.8)
[2020-04-07 08:08] LABS: BUN Creatinine Ratio 26.7 (10-20); Calcium 8.9 mg/dl (8.5-10.1); Creatinine Clr Calc Pharmacy 135.8 ml/min; Est GFR (African American) 118.7; Est GFR (Non-African American) 102.4; Potassium 3.7 mmol/L (3.5-5.1)
[2020-04-07] MEDS: ENOXAPARIN INJ 40 MG/0.4 ML SYR SQ SCH (08:38)
[2020-04-07] MEDS: METOPROLOL SUCC 50MG EXT REL TAB PO SCH (08:39)
[2020-04-07] MEDS: ASPIRIN 81 MG ECTAB PO SCH (08:40)
[2020-04-07] MEDS: ATORVASTATIN 20 MG TAB PO SCH (08:40)
[2020-04-07] MEDS: VENLAFAXINE HCL XR 150 MG CAPXR PO SCH (08:40)
[2020-04-07] MEDS: LOSARTAN POTASSIUM 50 MG TAB PO SCH (08:41)
[2020-04-07] MEDS: dexAMETHasone 4 MG TAB PO SCH (08:41)
[2020-04-07] MEDS: hydroCHLOROthiazide 25 MG TAB PO SCH (08:42)
[2020-04-07] MEDS: INSULIN ASPART 100 UNITS/ML 3 ML PEN SC SCH ×2 (08:48→12:31)
[2020-04-07] MEDS ORDERED: SODIUM CHLORIDE 0.65% NA SOLN 45 ML (OCEAN) ONE (08:51)
[2020-04-07] MEDS ORDERED: IBUPROFEN 800 MG TAB PO PRN (08:58)
[2020-04-07] MEDS ORDERED: SODIUM CHLORIDE 0.65% NA SOLN 45 ML (OCEAN) PRN (09:59)
--- NOTE | 2020-04-07 12:15 | Discharge Summary ---
Date of Service April 07, 2020 Admission HPI Per Admitting Provider Mr. 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 Patient reports that 11 days ago he started to feel unwell, with increased shortness of breath, cough, also feeling lightheaded with headaches and low grade fevers. He was staying at home, but after several days not getting better he got tested as outpatient and was found to be positive for COVID-19. He reports that he was having more chills at home and body aches, also has been having diarrhea on and off for these past 11 days. He reports sometimes diarr hea resolves, however he did have some loose stool this morning. He also reports weight loss about 10 pounds during this short time period, loss of appetite, reports taste and smell is poor. In emergency room, D-dimer was obtained and elevated at 500s, CT PE negative for PE. Patient was satting about 91% on room air, and therefore was started on 2 L of supplemental oxygen via nasal cannula. Has been tachypneic with respiration rate above 20. He was started on the dexamethasone in the ED, and also received IV fluids and albuterol. I had a conversation with patient about remdesivir, and patient is in agreement to start this medication, also discussed possible convalescent plasma, patient will think about this option. Admission Exam Per Admitting Provider Constitutional: WD/WN, vitals as above + ill appearing and + obese Eyes: PERRL, conjunctivae normal, anicteric sclerae ENMT: external ear and nose normal, oropharynx normal Neck: normal visual inspection thick neck Respiratory: + cough, able to speak in complete sentences and + tachypneic Auscultation: + rhonchi (mild bilaterally); no crackles and no wheezes Cardiovascular: RRR, no murmur, no edema Chest (Breasts): Chest: normal inspection of chest Gastrointestinal (Abdomen): Inspection/Auscultation: abdomen normal to inspection and normal bowel sounds; abdomen not distended and no abdominal edema Percussion/Palpation: abdomen soft; abdomen nontender, no guarding and abdomen not rigid Musculoskeletal: no cyanosis or clubbing, extremities motor strength 5/5 Head/Neck/Chest: normocephalic and head atraumatic Extremities: extremities normal to inspection Skin: no rashes, warm and dry Neurologic: PERRL, EOMI, accommodation nl, no face palsy, no dysarthria moves all extremities and awake; no focal motor deficits Speech / Cognition: normal speech Psychiatric: A+Ox3, euthymic affect Genitourinary: no CVA tenderness Lymphatic: no lymphedema Principal Diagnosis covid pneumonia Discharge Exam CONSTITUTIONAL: obese, vitals as above, generally well-appearing EYES: normal conjunctivae, no scleral icterus ENT: external ear and nose normal, oropharynx clear, MMM RESPIRATORY: clear to auscultation bilaterally, no crackles, rales or wheezes, normal respiratory effort CARDIOVASCULAR: regular rate and rhythm, S1 and 2 heard without murmurs, gallops or rubs, no JVD, no peripheral edema GASTROINTESTINAL: normal bowel sounds, soft, nontender, nondistended, no guarding. MUSCULOSKELETAL: strength 5/5 throughout, head is normocephalic and atraumatic SKIN: warm and dry NEUROLOGIC: No facial palsy, no dysarthria. CN 2-12 grossly intact, no sensory deficit, normal cognition, normal speech, no tremor. No gross focal deficits. PSYCHIATRIC: alert cooperative and oriented to person, place and time. Discharge Data Allergies Allergy/AdvReac Type Severity Reaction Status Date / Time No Known Allergies Allergy Verified 07/31/19 15:50 Consultations 04/04/20 14:10 ED Decision to Admit Stat Ordered Studies 04/04/20 11:46 CT angio chest PE protocol Stat Hospital Course (1) Pneumonia due to COVID-19 virus: (2) Hypoxemia: (3) DMII (diabetes mellitus, type 2): The patient is a 49-year-old man who was admitted to the hospital for pneumonia secondary to COVID-19. He was started on remdesivir and dexamethasone. With his late presentation of symptoms we discussed in detail the risks and benefits of convalescent plasma, which was not recommended. He required hospitalization secondary to oxygen requirement that was minimal and consistent and began to feel improved throughout his stay. At time of discharge he was hemodynamically stable and afebrile and tolerating p.o. He was mentating and ambulating at baseline and was oxygenating well on room air. He was sent home in stable condition with close primary care follow-up recommended. Of note lab work revealed a hemoglobin A1c of 6.8 indicating new diagnosis of diabetes type 2. As he was on dexamethasone he did require some insulin coverage during the hospitalization. Dexamethasone was stopped and not continued beyond discharge, and close follow-up with primary care doctor was recommended to discuss if further pharmacologic management of this is warranted. Total Time Total Time Spent Total Time Spent (In Minutes): 30 Total Time Includes: Examination of the Patient, Discharge Planning, Medication Reconciliation and Communication With Other Providers Discharge Plan Discharge Items Patient Disposition: Home - Self-Care Reason For Visit: COVID PNEUMONIA Discharge Diagnosis: covid pneumonia Condition on Discharge: Good Activity: Resume your previous activity Non-emergency contact: Primary Care Provider Call non-emergency contact if: you have any medication questions, your symptoms worsen and you have a fever Follow-up/Referrals: Josselyn Aguillon MD [Primary Care Provider] - Diet: Carb Consistent or DM2 Addtl Attending Provider Instructions: Please take all medications as instructed on discharge list below. Per CDC guidelines, you should remain on home quarantine for 20 days, or until 12, from the onset of symptoms. A repeat chset xray is recommended in 4-6 weeks to ensure complete resolution of pneumonia, which may be ordered by your PCP. It is recommended to follow-up with your PCP within 1-2 weeks in person or by telehealth visit to touch base after hospital discharge and ensure you are still doing well. It was a pleasure taking care of you! Please call if you have any questions or problems. You can reach a [facility] hospitalist on duty at [facility] 24 hours a day by calling [phone]. Take care of yourself. Ilene Moreno DO [facility] Hospitalist Addtl [employer] Provider Instructions: Home Isolation COVID-19 Instructions The following information about Home Isolation is from the CDC Website: https://www.cdc.gov/coronavirus/2019-ncov/hcp/fvavtpye-momthyh-uzbdor.html Stay home except to get medical care People who are mildly ill with COVID-19 are able to isolate at home during their illness. You should restrict activities outside your home, except for getting medical care. Do not go to work, school, or public areas. Avoid using public transportation, ride-sharing, or taxis. Separate yourself from other people and animals in your home People: As much as possible, you should stay in a specific room and away from other people in your home. Also, you should use a separate bathroom, if available. Animals: You should restrict contact with pets and other animals while you are sick with COVID-19, just like you would around other people. Although there have not been reports of pets or other animals becoming sick with COVID-19, it is still recommended that people sick with COVID-19 limit contact with animals until more information is known about the virus. When possible, have another member of your household care for your animals while you are sick. If you are sick with COVID-19, avoid contact with your pet, including petting, snuggling, being kissed or licked, and sharing food. If you must care for your pet or be around animals while you are sick, wash your hands before and after you interact with pets and wear a face mask. Call ahead before visiting your doctor If you have a medical appointment, call the healthcare provider and tell them that you have or may have COVID-19. This will help the healthcare providers office take steps to keep other people from getting infected or exposed. Wear a face mask You should wear a face mask when you are around other people (e.g., sharing a room or vehicle) or pets and before you enter a healthcare providers office. If you are not able to wear a face mask (for example, because it causes trouble breathing), then people who live with you should not stay in the same room with you, or they should wear a face mask if they enter your room. Cover your coughs and sneezes Cover your mouth and nose with a tissue when you cough or sneeze. Throw used tissues in a lined trash can. Immediately wash your hands with soap and water for at least 20 seconds or, if soap and water are not available, clean your hands with an alcohol-based hand religious assistant that contains at least 60% alcohol. Clean your hands often Wash your hands often with soap and water for at least 20 seconds, especially after blowing your nose, coughing, or sneezing; going to the bathroom; and befo re eating or preparing food. If soap and water are not readily available, use an alcohol-based hand religious assistant with at least 60% alcohol, covering all surfaces of your hands and rubbing them together until they feel dry. Soap and water are the best option if hands are visibly dirty. Avoid touching your eyes, nose, and mouth with unwashed hands. Avoid sharing personal household items You should not share dishes, drinking glasses, cups, eating utensils, towels, or bedding with other people or pets in your home. After using these items, they should be washed thoroughly with soap and water. Clean all high-touch surfaces everyday High touch surfaces include counters, tabletops, doorknobs, bathroom fixtures, toilets, phones, keyboards, tablets, and bedside tables. Also, clean any surfaces that may have blood, stool, or body fluids on them. Use a household cleaning spray or wipe, according to the label instructions. Labels contain instructions for safe and effective use of the cleaning product including precautions you should take when applying the product, such as wearing gloves and making sure you have good ventilation during use of the product. Monitor your symptoms Seek prompt medical attention if your illness is worsening (e.g., difficulty breathing).Beforeseeking care, call your healthcare provider and tell them that you have, or are being evaluated for, COVID-19. Put on a face mask before you enter the facility. These steps will help the healthcare providers office to keep other people in the office or waiting room from getting infected or exposed. Ask your healthcare provider to call the local or state health department. Persons who are placed under active monitoring or facilitated self- monitoring should follow instructions provided by their local health department or occupational health professionals, as appropriate. When working with your local health department check their available hours. If you have a medical emergency and need to call 911, notify the dispatch personnel that you have, or are being evaluated for COVID-19. If possible, put on a face mask before emergency medical services arrive. Discontinuing home isolation Patients with confirmed COVID-19 should remain under home isolation precautions until the risk of secondary transmission to others is thought to be low. The decision to discontinue home isolation precautions should be made on a [id number] basis, in consultation with healthcare providers and state and local health departments. Pending Studies at Discharge: No Stand-Alone Forms: My [facility] Medications and DC Order Prescriptions: Continued atorvastatin 20 mg Tablet 20 mg PO DAILY RF: 0 metoprolol succinate 50 mg Tablet Extended Release 24 Hr 50 mg PO DAILY RF: 0 venlafaxine 150 mg Capsule,Extended Release 24hr 150 mg PO DAILY RF: 0 aspirin 81 mg Tablet,Delayed Release (Dr/Ec) 81 mg PO DAILY RF: 0 hydrochlorothiazide 12.5 mg Capsule 12.5 mg PO DAILY RF: 0 lorazepam 1 mg Tablet 1 mg PO DAILY PRN (Reason: Anxiety) RF: 0 losartan 100 mg Tablet 100 mg PO DAILY RF: 0 Discharge Orders: Discharge Order (Routine); Ordered 04/07/20 Ordered By: Ilene Garcia/Other Patient Handouts: 5 Steps for Eating Healthier, Diabetes: Meal Planning, A1C Admission Data Admit Date/Time: 04/04/20 15:16 Attending Provider: Ilene Moreno Admit Provider: Vince Love Primary Care Provider: Josselyn Aguillon Other Providers: Vince Love Other Interventions: Discharge Summary Assessment (RN) Last Done: 04/07/20 12:41
== END 2020-04-07 13:42 | disposition home or self-care (01) | DRG 177 ==
LOC: ED 09:58 → 2E 15:16 → SUATTDRO 15:16 → 2E 15:30